=== PATIENT | female | born 1995 | race Caucasian/White ===

== ENCOUNTER 2023-09-29 07:50 | Outpatient (OUT) | payer BC, SELFPAY ==
--- NOTE | 2023-09-29 08:45 | CA_ITS ---
Patient Name: LETICIA THOMAS MR#: [id number] : 1995 Exam Date: 09/29/2023 Ordering Doctor: DR Mahendra Mustafa . ECHOCARDIOGRAM REPORT PROCEDURE: CA ECHO DOPPLER COMPLETE INDICATIONS: Tachycardia COMPARISON: None. DESCRIPTION: COMPLETE ECHOCARDIOGRAM Real-time transthoracic echocardiography with 2D, M-mode, spectral and color flow Doppler performed. QUALITY: Technical quality was good. LEFT VENTRICLE: Normal chamber size. Normal left ventricular wall thickness. LV EF: Global left ventricular systolic function is normal. Calculated left ventricular ejection fraction is 56%. No regional wall motion abnormalities. DIASTOLIC: Normal diastolic function. ATRIAL SEPTUM: Inadequately seen. LEFT ATRIUM: Normal chamber size. RIGHT ATRIUM: Normal chamber size. RIGHT VENTRICLE: Normal chamber size. Normal right ventricular systolic function. TRICUSPID VALVE: Normal mobility and thickness. No stenosis with trivial regurgitation. Unable to assess right ventricular systolic pressure due to lack of measurable tricuspid regurgitation. MITRAL VALVE: Normal mobility and thickness. No evidence of mitral valve stenosis. There is no mitral annular calcification. Trivial mitral regurgitation. AORTIC VALVE: Normal trileaflet appearance. No visible sclerosis. Normal leaflet mobility. No evidence of aortic valve stenosis. No aortic regurgitation. AORTIC ROOT: Normal diameter and appearance. PULMONIC VALVE: Normal thickness and mobility. No stenosis. Trivial regurgitation. PERICARDIUM: No evidence of pericardial effusion. IVC: Collapses with inspirations. Normal size. CONCLUSION: Essentially normal 2D echocardiogram with Doppler Adult Echocardiography Procedure Report Left Ventricle LVEDD (3.7 - 5.6 cm): 5.26 cm LVESD (2.2 - 4.0 cm): 3.40 cm LVIVS thickness (0.6 - 1.2 cm): 0.90 cm LVPW thickness (0.5 - 1.0 cm): 0.93 cm e': 0.16 m/s E - e': 6.33 LVOT Max Gradient: 4.40 mm[Hg] LVOT Area (cm2): 1.05 m/s Peak Velocity (LVOT): 1.05 m/s Mean Velocity (LVOT): 0.75 m/s LVOT Diameter 2.12 cm Left Ventricular Ejection Fraction: 55.62 % Left Atrium LA Volume Index (2D A2C): 24.80 ml/m2 Left Atrium Systolic Dimension: 3.17 cm Mitral Valve MV E to A Ratio: 1.80 Mitral Valve A-Wave Peak Velocity: 0.58 m/s Mitral Valve E-Wave Peak Velocity: 1.04 m/s Right Ventricle RV Internal Diastolic Dimension: 3.23 cm Aorta AO Root Diam: 3.05 cm Ascending Ao Diam: 2.86 cm Aortic Valve AoV Area (Peak Turner): 2.79 cm2, 2.79 cm2 AoV Area (VTI): 2.67 cm2, 2.67 cm2 Peak Velocity(Antegrade Flow): 1.33 m/s Peak Gradient(Antegrade Flow): 7.03 mm[Hg] Mean Velocity(Antegrade Flow): 0.94 m/s Mean Gradient(Antegrade Flow): 4.03 mm[Hg] Velocity Time Integral: 27.16 cm Tricuspid Valve Peak Velocity (Regurgitant Flow): 1.10 m/s, 1.90 m/s Pulmonic Valve Mean Gradient: 1.93 mm[Hg], 2.27 mm[Hg] Mean Velocity: 0.65 m/s, 0.70 m/s Peak Velocity: 0.97 m/s Peak Gradient: 3.25 mm[Hg], 4.25 mm[Hg] Right Atrium Right Atrium Systolic Pressure: 46.40 ml, 46.40 ml Dictated by: Nicolasa Amos M.D. on 09/29/2023 at 11:38 Approved by: Nicolasa Amos M.D. on 09/29/2023 at 11:41
[2023-09-29 09:00] LABS: Basophils Percent Auto 0.2 % (0.2-2.0); Eosinophils Absolute Auto 0.2 10^3/uL (0.0-0.7); Eosinophils Percent Auto 2.9 % (0.9-7.0); Hematocrit 41.3 % (36.0-48.0); Hemoglobin 13.6 g/dL (12.0-16.0); Immature Granulocytes Abs Auto 0.01 10^3/uL (0.00-0.03); Immature Granulocytes Pct Auto 0.2 % (0.0-0.5); Lymphocytes Absolute Auto 2.6 10^3/uL (1.2-3.8); Lymphocytes Percent Auto 42.3 % (20.5-60.0); Mean Corpuscular HGB Conc 32.9 g/dL (29.9-35.2); Mean Corpuscular Hemoglobin 30.1 pg (26.7-34.0); Mean Corpuscular Volume 91.4 fL (81.0-99.0); Mean Platelet Volume 9.5 fL (9.5-13.5); Monocytes Absolute Auto 0.5 10^3/uL (0.3-0.8); Monocytes Percent Auto 8.6 % (1.7-12.0); Neutrophils Absolute Auto 2.8 10^3/uL (1.4-6.5); Neutrophils Percent Auto 45.8 % (43.0-75.0); Platelet Count 274 10^3/uL (150-450); Red Blood Count 4.52 10^6/uL (4.20-5.40); Red Cell Distribution Width 12.4 % (11.0-15.0); White Blood Count 6.2 10^3/uL (4.0-11.0)
[2023-09-29 09:08] LABS: Erythrocyte Sedimentation Rate 11 mm/hr (<=20)
[2023-09-29 11:29] LABS: Alanine Aminotransferase 28 U/L (14-59); Albumin Level 3.6 g/dL (3.4-5.0); Alkaline Phosphatase 70 U/L (46-116); Anion Gap 15.3; Aspartate Amino Transferase 12 U/L (15-37); BUN Creatinine Ratio 9.2; Bilirubin Direct <0.1 mg/dL (0.0-0.2); Bilirubin Total 0.3 mg/dL (0.2-1.0); Calcium 8.4 mg/dL (8.5-10.1); Carbon Dioxide 25.2 mmol/L (21.0-32.0); Chloride 102 mmol/L (98-107); Estimated GFR (African America >60 (>=60); Estimated GFR (Non-African Ame >60 (>=60); Free T3 2.69 pg/mL (2.18-3.98); Globulin 3.6 g/dL; Glucose 80 mg/dL (74-106); Potassium 3.5 mmol/L (3.5-5.1); Sodium 139 mmol/L (136-145); Thyroid Stimulating Hormone 5.186 uIU/mL (0.358-3.740); Total Protein 7.2 g/dL (6.4-8.2)
== END 2023-09-29 07:51 | disposition home or self-care (01) ==
LOC: CARD 07:53
PROVIDERS: PCP Family Medicine; Visit Provider Family Medicine
DX: R00.0 Tachycardia, unspecified (principal); I11.0 Hypertensive heart disease with heart failure
CPT/HCPCS: 36415; 80048; 80076; 83880; 84436; 84443; 84481; 85025; 85652; 93306

== ENCOUNTER 2024-03-27 20:46 | Outpatient (REF) | payer BC, SELFPAY ==
--- OUTSIDE RECORDS SUMMARY | 2024-03-27 20:51 | XMS_ITS | CCD ---
Author Organization [facility] Care Team Providers Care High School Coach Name Role Phone ELLA CANAS Admitting Unavailable ELLA CANAS Attending Unavailable LOR ., DR JOHN Primary Care Unavailable ELLA CANAS Consulting Unavailable LOR ., DR JOHN Admitting Unavailable LOR ., DR JOHN Attending Unavailable HOY ., DR JOHN Primary Care Unavailable HOY ., DR JOHN Consulting Unavailable WEST, DR CHUCKIE Escalante Consulting Unavailable Problems Problem Classification Problem Date Documented Date Episodic/Chronic Immunizations and screening for infectious disease (1 source) Encounter for screening for human papillomavirus (HPV); Translations: [ENC SCREENING HUMAN PAPILLOMAVIRUS] Onset: 07-21-2022 Episodic Menstrual disorders (4 sources) Excessive and frequent menstruation with irregular cycle; Translations: [EXCESS AND FREQ MEN W/IRREG CYCLE] Onset: 10-08-2022 Chronic Other screening for suspected conditions (not mental disorders or infectious disease) (4 sources) Encounter for screening for malignant neoplasm of cervix; Translations: [ENC SCREENING MALIG NEOPLASM CERV] Onset: 07-14-2022 Episodic Ovarian cyst (1 source) Other ovarian cyst, left side; Translations: [OTHER OVARIAN CYST LEFT SIDE] Onset: 10-16-2022 Episodic Results Test Name Value Interpretation Reference Range Facil ity US PELVIS TRANSVAGon 023 US PELVIS TRANSVAG EXAMINATION: US PELVIS TRANSVAG HISTORY: Excessive menstruation with irregular cycle COMPARISON: No relevant comparison available. FINDINGS: The patient did not want to drink for transabdominal imaging. Transvaginal performed The uterus is normal in size, contour and echotexture, anteverted. Uterus measures 8.2 x 4.3 x 3.6 cm. No focal myometrial mass The endometrium measures 9 mm, normal. The right ovary is normal in appearance measuring 1.9 x 1.6 x 1.3 cm. Normal color and Doppler flow. The left ovary is normal in appearance measuring 2.9 x 2.4 x 1.9 cm. Area of anechoic echogenicity measuring 1.4 x 1.1 x 1.2 cm, simple cyst. Normal color and Doppler flow No free fluid IMPRESSION: 1.4 cm left ovarian simple cyst Electronically authenticated by: CHUCKIE BANSAL Date: 2022-10-09 11:42 Normal [facility] PAP ACOG PANEL 2: 21 to 29on 07-29-2022 . . Normal [facility] Comment on above: Result Comment: Perf ormed at: WB Performed By: #### [id number] #### [facility] [address] [place] [address] Dr. Nba Baker Age Gdln ACOG Testing [facility] Comment on above: Performed By: #### [id number] #### [facility] [address] [place] [address] Dr. Nba Baker DIAGNOSIS: Comment [facility] Comment on above: Result Comment: NEGA TIVE FOR INTRAEPITHELIAL LESION OR MALIGNANCY. THIS SPECIMEN WAS RESCREENED PART OF OUR [facility] PROGRAM. Performed at: WB Performed By: #### [id number] #### [facility] [address] [place] [address] Dr. Nba Baker Methodology: Comment [facility] Comment on above: Result Comment: This liquid based ThinPrep(R) pap test was screened with the use of an image guided system. Performed at: WB Performed By: #### [id number] #### [facility] [address] [place] [address] Dr. Nba Baker Note: Comment [facility] Comment on above: Result Comment: The Pap smear is a screening test designed to aid in the detection of premalignant and malignant conditions of the uterine cervix. It is not a diagnostic procedure and should not be used as the sole means of detecting cervical cancer. Both false-positive and false-negative reports do occur. . Performed at: WB Performed By: #### [id number] #### [facility] [address] [place] [address] Dr. Nba Baker Performed by: Comment Normal [facility] Comment on above: Result Comment: Jean-Paul Mercado, [employer] Forming Equipment Operator (ASCP) Performed at: [facility] Performed By: #### [id number] #### [facility] [address] [address] [address] Nba Baker QC reviewed by: Comment Normal [facility] Comment on above: Result Comment: Justin Jaeger, [employer] Forming Equipment Operator (ASCP) Performed at: WB Performed By: #### [id number] #### [facility] [address] [address] [address] Nba Baker Reflex Criteria: Comment Normal [facility] Comment on above: Result Comment: The HPV DNA reflex criteria were not met with this specimen result therefore, no HPV testing was performed. . Performed at: WB Performed By: #### [id number] #### [facility] [address] [address] [address] Nba Baker Specimen adequacy: Comment Normal [facility] Comment on above: Result Comment: Sati sfactory for evaluation. Endocervical and/or squamous metaplastic cells (endocervical component) are present. Performed at: WB Performed By: #### [id number] #### [facility] [address] [address] [address] Nba Baker Encounters Encounter Date Encounter Type Care Provider Facility Start: 12-30-2023 End: 12-30-2023 ambulatory Not Available Start: 10-07-2023 End: 10-07-2023 ambulatory Not Available Start: 07-21-2023 End: 07-21-2023 ambulatory Not Available Start: 10-08-2022 End: 10-09-[address] DORA HOROWITZ . Facility:[facility] Start: 07-14-2022 End: 07-14-2022 ambulatory ELLA CANAS Facility:[facility] Payers Date Payer Category Payer Unknown [id number] 2.16.84 [id number] 1995 Unknown [id number] 2.16.84 [id number] 1995 Unknown [id number] 2.16.84 [id number] 1995 Unknown [id number] 2.16.84 [id number] 1995 Unknown [id number] 1959 Unknown [id number] 1958 Unknown [id number] Summary Purpose Family History No Family History Records FoundNo Family History Records Found Advance Directives No Advanced Directives Records FoundNo Advanced Directives Records Found Additional Source Comments INFORMATION SOURCE (unrecogn ized section and content) DATE CREATED AUTHOR [facility]/2022 [facility] DATE CREATED AUTHOR MAYDA HERNANDEZ 12/31/2023 [facility] FOR RECORDS PERTAINING TO PATIENTS WHO ARE OR HAVE BEEN ENROLLED IN A CHEMICAL DEPENDENCY/SUBSTANCEABUSE PROGRAM, SOME INFORMATION MAY BE OMITTED. This clinical summary was aggregated from multiple sources. Caution should be exercised in using it in the provision of clinical care. This summary normalizes information from multiple sources, and as a consequence, information in this document may materially change the coding, format and clinical context of patient data. In addition, data may be omitted in some cases. CLINICAL DECISIONS SHOULD BE BASED ON THE PRIMARY CLINICAL RECORDS. [facility] [employer] provides no warranty or guarantee of the accuracy or completeness of information in this document.
== END 2024-03-27 20:47 | disposition home or self-care (01) ==
LOC: LAB 20:46
PROVIDERS: PCP Family Medicine; Visit Provider Physician Assistant
DX: Z01.419 Encounter for gynecological examination (general) (routine) without abnormal findings (principal)
CPT/HCPCS: 88175

== ENCOUNTER 2024-10-23 08:42 | Outpatient (OUT) | payer BC, SELFPAY ==
--- NOTE | 2024-10-23 08:46 | XR_ITS ---
The [address] [address] Patient Name: LETICIA THOMAS MRN: [id number] date: 1995 Sex: F Assigned Patient Location: [facility] Current Patient Location: [facility] Accession/Order Number: [id number] Exam Date: 10/23/2024 09:38 Report Date: 10/23/2024 09:43 At the request of: DORA HOROWITZ MD Procedure: XR foot LT 2V Clinical data: Left foot and ankle pain for the past 2 weeks, greatest at the arch. No injury. LEFT ANKLE - 2 views COMPARISON: 12/29/2014 AP and lateral views were obtained. There is no evidence of fracture or dislocation. The talar dome is intact. The soft tissues are still mildly prominent. XR/XR ankle LT 2V IMPRESSION: NO ACUTE BONY FINDINGS. LEFT FOOT - 3 views COMPARISON: AP and lateral views were obtained. There is no evidence of fracture or dislocation. There are no significant soft tissue abnormalities. IMPRESSION: NO ACUTE BONY FINDINGS. Impression dictated by: Lorene Angulo M.D.10/23/2024 9:43 AM Dictation Location: [place] [address] Electronically authenticated by: [id number] Y Date: 10/23/2024 09:43
--- NOTE | 2024-10-23 08:46 | XR_ITS ---
The [address] [address] Patient Name: LETICIA THOMAS MRN: [id number] date: 1995 Sex: F Assigned Patient Location: [facility] Current Patient Location: [facility] Accession/Order Number: [id number] Exam Date: 10/23/2024 09:38 Report Date: 10/23/2024 09:43 At the request of: DORA HOROWITZ MD Procedure: XR foot LT 2V Clinical data: Left foot and ankle pain for the past 2 weeks, greatest at the arch. No injury. LEFT ANKLE - 2 views COMPARISON: 12/29/2014 AP and lateral views were obtained. There is no evidence of fracture or dislocation. The talar dome is intact. The soft tissues are still mildly prominent. XR/XR foot LT 2V IMPRESSION: NO ACUTE BONY FINDINGS. LEFT FOOT - 3 views COMPARISON: AP and lateral views were obtained. There is no evidence of fracture or dislocation. There are no significant soft tissue abnormalities. IMPRESSION: NO ACUTE BONY FINDINGS. Impression dictated by: Lorene Angulo M.D.10/23/2024 9:43 AM Dictation Location: [place] [address] Electronically authenticated by: [id number] Y Date: 10/23/2024 09:43
--- OUTSIDE RECORDS SUMMARY | 2024-10-23 09:04 | XMS_ITS | CCD ---
Author Organization [facility] Care Team Providers Care Broom Bundler Name Role Phone ELLA CANAS Admitting Unavailable ELLA CANAS Attending Unavailable LOR ., DR JOHN Primary Care Unavailable ELLA CANAS Consulting Unavailable LOR ., DR JOHN Admitting Unavailable LOR ., DR JOHN Attending Unavailable LOR ., DR JOHN Primary Care Unavailable LOR ., DR JOHN Consulting Unavailable [place], DR CHUCKIE Escalante Consulting Unavailable MAXINE VELIZ Attending Unavailable Dora Mustafa MD Primary Care Provider [phone] Medications Current Medications Medication Drug Class(es) Dates Sig (Normalized) Sig (Original) 1 ml medroxyPROGESTERone acetate 150 mg/ml prefilled syringe (16 sources) Progestin Start: medroxyPROGESTERone (Depo-Provera) 150 MG/ML suspension prefilled syringe injection syringe Indications: control counseling INJECT 1 ML (150 MG) INTO THE SHOULDER, THIGH, OR BUTTOCKS EVERY 3 MONTHS 1 mL 3 03/27/2024 Active Start: 02-01-2023 medroxyPROGEST ERone (Depo-Provera) 150 MG/ML suspension prefilled syringe injection syringe Indications: control counseling INJECT 1 ML (150 MG) INTO THE SHOULDER, THIGH, OR BUTTOCKS EVERY 3 MONTHS 1 mL 3 03/27/2024 Active Start: 01-03-2023 medroxyPROGEST ERone (Depo-Provera) injection 150 mg Start: 10-04-2022 Depo-SubQ Prov era 104 104 MG/0.65ML injection USE 1 INJECTION INTRAMUSCULARLY EVERY 12 WEEKS 10/04/2022 Active Problems Problem Classification Problem Date Documented Date Episodic/Chronic Immunizations and screening for infectious disease (1 source) Encounter for screening for human papillomavirus (HPV); Translations: [ENC SCREENING HUMAN PAPILLOMAVIRUS] Onset: 07-21-2022 Episodic Menstrual disorders (8 sources) Excessive and frequent menstruation with irregular cycle; Translations: [Disorder of menstruation] Onset: 10-08-2022 Chronic Other screening for suspected conditions (not mental disorders or infectious disease) (4 sources) Encounter for screening for malignant neoplasm of cervix; Translations: [ENC SCREENING MALIG NEOPLASM CERV] Onset: 07-14-2022 Episodic Ovarian cyst (1 source) Other ovarian cyst, left side; Translations: [OTHER OVARIAN CYST LEFT SIDE] Onset: 10-16-2022 Episodic Results Test Name Value Interpretation Reference Range Facil ity IGP,APTIMA HPV,AGE GDLNon AGE GDLN ACOG TESTING Note . [facility] Comment on above: TESTS RESULT FLAG UN ITS REF RANGE LAB Clinician Provided Cytology Information Source.............Cervix;Endocervix No. of containers..01 ThinPrep Vial Age Algo ACOG Shayy... - 01 FLAG LEGEND: L-Low Normal,H-High Normal,LL-Alert Low,HH-Alert High <-Panic Low,>-Panic High,A-Abnormal,AA-Critical Abnormal Performed at: 01 =G [facility] [place] [address] Gwendolyn Puente MD, IGP, RFX APTIMA HPV ASCU Note . [facility] Comment on above: TESTS RESULT FLAG UN ITS REF RANGE LAB DIAGNOSIS: 02 NEGATIVE FOR INTRAEPITHELIAL LESION OR MALIGNANCY. Specimen adequacy: 02 Satisfactory for evaluation. Endocervical and/or squamous metaplastic cells (endocervical component) are present. Performed by: Lisette Gutierrez, [employer] Officer ([facility]) . 02 Note: Note 02 The Pap smear is a screening test designed to aid in the detection of premalignant and malignant conditions of the uterine cervix. It is not a diagnostic procedure and should not be used as the sole means of detecting cervical cancer. Both false-positive and false-negative reports do occur. Test Methodology: Note 02 This liquid based ThinPrep(R) pap test was screened with the use of an image guided system. . 02 The HPV DNA reflex criteria were not met with this specimen result therefore, no HPV testing was performed. FLAG LEGEND: L-Low Normal,H-High Normal,LL-Alert Low,HH-Alert High <-Panic Low,>-Panic High,A-Abnormal,AA-Critical Abnormal Performed at: [address] [facility] [address] [place] [address] Gwendolyn Puente MD, Performed at: =G - [facility] [address], [place] [id number] Search Engine Optimization Consultant: Gwendolyn Puente MD, Phone: [phone] Performed at: - [facility] [id number] Search Engine Optimization Consultant: Gwendolyn Puente MD, Phone: [phone] BRUSH-SPATULA CERVIX ENDOCERVIX [facility] US PELVIS TRANSVAGon 023 US PELVIS TRANSVAG [...] by: CHUCKIE BANSAL Date: 2022-10-09 11:42 Normal [facility] PAP ACOG PANEL 2: 21 to 29on 07-29-2022 . . Normal [facility] Comment on above: Result Comment: Perf ormed at: WB Performed By: #### [id number] #### [facility] [address] [place] [address] Dr. Nba Baker Age Gdln ACOG Testing 22- Normal [facility] Comment on above: Performed By: #### [id number] #### [facility] [address] [place] [address] Dr. Nba Baker DIAGNOSIS: Comment Normal [facility] Comment on above: Result Comment: NEGA TIVE FOR INTRAEPITHELIAL LESION OR MALIGNANCY. THIS SPECIMEN WAS RESCREENED PART OF OUR ELECTRICAL MAINTENANCE SUPERVISOR PROGRAM. Performed at: WB Performed By: #### [id number] #### [facility] [address] [place] [address] Dr. Nba Baker Methodology: Comment Normal [facility] Comment on above: Result Comment: This liquid based ThinPrep(R) pap test was screened with the use of an image guided system. Performed at: WB Performed By: #### [id number] #### [facility] [address] [place] [address] Dr. Nba Baker Note: Comment [facility] Comment on above: Result Comment: The Pap smear is a screening test designed to aid in the detection of premalignant and malignant conditions of the uterine cervix. It is not a diagnostic procedure and should not be used as the sole means of detecting cervical cancer. Both false-positive and false-negative reports do occur. . Performed at: WB Performed By: #### [id number] #### [facility] [address] [place] [address] Dr. Nba Baker Performed by: Comment Normal [facility] Comment on above: Result Comment: Jean-Paul Mercado, [employer] Officer ([employer]) Performed at: [facility] Performed By: #### [id number] #### [facility] [address] [place] [address] Dr. Nba Baker QC reviewed by: Comment Normal [facility] Comment on above: Result Comment: Justin Jaeger, [employer] Officer (ASCP) Performed at: WB Performed By: #### [id number] #### [facility] [address] [place] [address] Dr. Nba Baker Reflex Criteria: Comment [facility] Comment on above: Result Comment: The HPV DNA reflex criteria were not met with this specimen result therefore, no HPV testing was performed. . Performed at: WB Performed By: #### [id number] #### [facility] [address] [place] [address] Dr. Nba Baker Specimen adequacy: Comment Normal [facility] Comment on above: Result Comment: Sati sfactory for evaluation. Endocervical and/or squamous metaplastic cells (endocervical component) are present. Performed at: WB Performed By: #### [id number] #### [facility] [address] [place] [address] Dr. Nba Baker Vital Signs Date Time Vital Sign Value Performing Clinician Antonio cedeno 03-27-2024 11:21-0400 Body height 165.1 cm Maxine SULLIVAN Work Phone: [facility] 03-27-2024 11:21-0400 Body mass index (BMI) [Ratio] 44.43 kg/m2 Maxine Veliz PA Work Phone: [facility] 03-27-2024 11:21-0400 Body weight 121.11 kg Maxine Veliz PA Work Phone: [facility] 03-27-2024 11:21-0400 Diastolic blood pressure 80 mm[Hg] Maxine Veliz PA Work Phone: [facility] 03-27-2024 11:21-0400 Systolic blood pressure 120 mm[Hg] Maxine Veliz PA Work Phone: [facility] Encounters Encounter Date Encounter Type Care Provider Facility Start: 03-30-2024 End: 03-30-2024 ambulatory MAXINE VELIZ Not Available Start: 03-27-2024 End: 03-27-2024 Bamboo flowsheet Maxine SULLIVAN Work Phone: [facility] Start: 03-27-2024 End: 03-30-2024 Bamboo flowsheet Maxine Veliz PA Work Phone: [facility] Start: 03-27-2024 End: 03-30-2024 Clinisync Result Encounter Maxine SULLIVAN Work Phone: [facility] External Department Unsolicited Start: 03-27-2024 End: 03-27-2024 Patient encounter procedure Maxine SULLIVAN Work Phone: [facility] Healthcare Start: 03-27-2024 End: 03-27-2024 Periodic preventive med est patient 18-39 yrs Maxine SULLIVAN Work Phone: [facility] Comment on above: Well woman exam with routine gynecological exam Start: 03-27-2024 End: 03-27-2024 ambulatory MAXINE VELIZ Not Available Start: 12-30-2023 End: 12-30-2023 ambulatory MAXINE KEREN Not Available Start: 10-07-2023 End: 10-07-2023 ambulatory MAXINE KEREN Not Available Start: 07-21-2023 End: 07-21-2023 ambulatory MAXINE KEREN Not Available Start: 10-08-2022 End: 10-09-[address] DORA MUSTAFA . Facility: Start: 07-14-2022 End: 07-14-2022 ambulatory ELLA CANAS Facility:H1 Procedures Date Procedure Procedure Detail Performing Clinician Start: 03-27-2024 IGP,APTIMA HPV,AGE GDLN Maxine Veliz PA Work Phone: Plan of Treatment Date Care Activity Detail Author Start: 06-29-2024 End: 06-29-2024 Clinical Support 06/29/2024 9:10 AM EST Clinical Support [facility] [address] [facility] [place] [address] [facility] Start: 03-30-2024 End: 03-30-2024 Clinical Support 03/30/2024 9:00 AM EDT Clinical Support [facility] [address] [facility] [place] [address] [facility] Start: 03-27-2024 End: 03-27-2024 Patient encounter procedure 03/27/2024 11:00 AM EDT Office Visit [facility] [address] [place] [address] Maxine Veliz PA [address] [place] [address] Arrived [facility] Comment on above: Arrived Cytology Cervical or vaginal smear or scraping study Pap Smear Pathology and Cytology Routine Well woman exam with routine gynecological exam Ordered: 03/27/2024 [facility] Work Phone: Comment on above: Ordered: 03/27/2024 Payers Date Payer Category Payer Unknown BCBS BCBS xxxxxx [id number] 2022-Present [phone] [address] [place] [address] [id number] 1996 Unknown [id number] 1996 Unknown [id number] 1996 Unknown [id number] 1996 Unknown [id number] 1996 Unknown [id number] 1996 Unknown [id number] 1996 Unknown [id number] 1959 Unknown [id number] 1959 Unknown [id number] Social History Date Type Detail Facility Start: 03-27-2024 [facility] History of tobacco use Current smoker [facility] History of tobacco use Cigarette Smoker [facility] Start: 12-30-2023 End: 03-27-2024 Alcoholic beverage intake Lifetime non-drinker (finding) [facility] Start: 02-02-2023 End: 03-27-2024 [facility] of Social function [facility] Start: 02-02-2023 End: 03-27-2024 Tobacco use panel [facility] Start: 12-29-2022 Alcohol Comment caffeine intak e: 1-2 cups per day; soda [facility] Start: 1995 Sex assigned at Not on file [facility] Start: 12-29-2022 [facility] Smokes tobacco daily [facility] History of Present illness Narrative 03-27-2024 NATE Rodriguez - 03/27/2024 11:00 AM EDT Note Date & Type Note Facility 03-27-2024 History of Presen t illness Narrative Reason for Appointment: Patient ID: Lillian Zapata is a 28 y.o. female who presents for Well Women Visit Patient presents today for Annual Exam. MEDICATIONS Current Outpatient Medications Medication Instructions Depo-SubQ Provera 104 104 MG/0.65ML injection USE 1 INJECTION INTRAMUSCULARLY EVERY 12 WEEKS medroxyPROGESTERone (Depo-Provera) 150 MG/ML suspension prefilled syringe injection syringe INJECT 1 ML (150 MG) INTO THE SHOULDER, THIGH, OR BUTTOCKS EVERY 3 MONTHS ALLERGIES No Known Allergies PROBLEMS Active Ambulatory Problems Diagnosis Date Noted Menstrual disorder 02/01/2023 Resolved Ambulatory Problems Diagnosis Date Noted No Resolved Ambulatory Problems Past Medical History: Diagnosis Date Depot contraception Ovarian cyst HISTORY PAST MEDICAL HISTORY SOCIAL HISTORY Past Medical History: Diagnosis Date Depot contraception Ovarian cyst Social History Tobacco Use Smoking status: Former Types: Cigarettes Smokeless tobacco: Not on file Substance Use Topics Alcohol use: Never Comment: caffeine intake: 1-2 cups per day; soda Drug use: Never FAMILY HISTORY No family history on file. SURGICAL HISTORY Past Surgical History: Procedure Laterality Date APPENDECTOMY SECTION, CLASSIC x2 SECTION, LOW TRANSVERSE OTHER SURGICAL HISTORY R shoulder scope DAP CO LAP,APPENDECTOMY 2016 REVIEW OF SYSTEMS Review of Systems: Review of Systems Constitutional: Negative. HENT: Negative. Eyes: Negative. Respiratory: Negative. Cardiovascular: Negative. Gastrointestinal: Negative. Genitourinary: Negative. Musculoskeletal: Negative. Skin: Negative. Neurological: Negative. All other systems reviewed and are negative. Hematological: Negative. Endocrine: Negative. Allergic/Immunologic: Negative. OBJECTIVE Objective: Physical Exam Constitutional: Appearance: Normal appearance. Genitourinary: Right Adnexa: not tender and no mass present. Left Adnexa: not tender and no mass present. No cervical discharge. Breasts: Breasts are soft. Right: Normal. Left: Normal. HENT: Head: Normocephalic. Nose: Nose normal. Mouth/Throat: Mouth: Mucous membranes are moist. Cardiovascular: Rate and Rhythm: Normal rate. Pulmonary: Effort: Pulmonary effort is normal. Abdominal: General: Bowel sounds are normal. Palpations: Abdomen is soft. Musculoskeletal: General: Normal range of motion. Cervical back: Normal range of motion. Neurological: General: No focal deficit present. Mental Status: She is alert. Skin: General: Skin is warm and dry. Psychiatric: Mood and Affect: Mood normal. Vitals and nursing note reviewed. Exam conducted with a production line solderer present. Vitals: Estimated body mass index is 44.43 kg/m as calculated from the following: Height as of this encounter: 5' 5 . Weight as of this encounter: 267 lb. BP: 120/80 Patient's last menstrual period was 07/25/2023. ASSESSMENT & PLAN ICD-10-CM 1. Well woman exam with routine gynecological exam Z01.419 Pap Smear Annual Exam: Patient presents today for an annual exam. Patient states she is doing well and has no complaints. Pap was obtained without difficulty. No orders of the defined types were placed in this encounter. Follow Up: Patient is to return in one year for annual unless needed otherwise. Documented by NATE Rodriguez on behalf of: NATE Rodriguez documented in this encounter [facility] Evaluation note Note Date & Type Note Facility Evaluation note Diagnosis Well woman exam with routine gynecological exam Routine gynecological examination documented in this encounter [facility] Summary Purpose Family History No Family History Records FoundNo Family History Records Found Advance Directives No Advanced Directives Records FoundNo Advanced Directives Records Found Additional Source Comments INFORMATION SOURCE (unrecogn ized section and content) DATE CREATED AUTHOR 10/17/2022 [facility] DATE CREATED AUTHOR AUTHOR'S ORGANIZ ATION 04/01/2024 [facility] EPIC Reason for Visit (unrecogniz ed section and content) Reason Comments Well Women Visit Care Teams (unrecognized sec tion and content) Broom Bundler Relationship Specialty Start Date End Date Dora Mustafa MD [address] [place] [address] PCP - General Family Medicine 02/02/23 Broom Bundler Relationship Specialty Start Date End Date Dora Mustafa MD [address] [place] [address] PCP - General Family Medicine 02/02/23 Broom Bundler Relationship Specialty Start Date End Date Dora Mustafa MD [address] [place] [address] PCP - General Family Medicine 02/02/23 FOR RECORDS PERTAINING TO PATIENTS WHO ARE [...] BE BASED ON THE PRIMARY CLINICAL RECORDS. [facility] [employer] [facility]. provides no warranty or guarantee of the accuracy or completeness of information in this document.
== END 2024-10-23 08:43 | disposition home or self-care (01) ==
LOC: RAD 08:43
PROVIDERS: PCP Family Medicine; Visit Provider Family Medicine
DX: M79.672 Pain in left foot (principal)
CPT/HCPCS: 73600; 73620

== ENCOUNTER 2025-04-03 08:48 | Outpatient (OUT) | payer BC, SELFPAY ==
--- OUTSIDE RECORDS SUMMARY | 2023-10-03 12:00 | XMS_ITS ---
Author Organization [facility] in [place] Address [address] [place] [address] Care Team Providers Care Pneumatic Tester Name Role Phone Lisa Mustafa Primary Care Provider DORA MUSTAFA Unavailable [phone] REASON FOR VISIT flu like symptoms-no covid test Encounters Encounter Location Date Provider Diagnosis [address] [address] 10/03/2023 DORA MUSTAFA Plan Of Treatment No Information Progress Notes * Lillian ZAPATA KDOB:[birth year] (29 yo F)Acc No.[id number]:10/03/2023 UNLOCKED PROGRESS NOTE Progress Note Patient: Iban SAINZmansoor Nikki Provider: Hernan Mustafa M.D. :1995 A ge:28 Y S ex:Female Date:10/03/2023 Address:[address] [place] [id number] Pcp:Lisa Mustafa Subjective: * Chief Complaints: * 1 . Flu like symptoms-no covid test. * Medical History: Objective: * Vitals: Assessment: Plan: * Treatment: * * Electronic signature of LISA MUSTAFA MD on 04/03/2025 at 08:54 AM EDT Sign off status: Pending Visit Status: C ANC (Cancelled) * Provider: Hernan Mustafa M.D. Date: 0 10/03/2023 Generated for Armin carbajal/Alexandrea/Renukaitting on: 0 04/03/2025 08:54 AM EDT
--- OUTSIDE RECORDS SUMMARY | 2023-10-04 11:00 | XMS_ITS ---
Author Organization [facility] in [place] Address [address] [place] [address] Care Team Providers Care Supervisor [employer] Name Role Phone José Miguel Mustafa Primary Care Provider KENRICK HOOD Unavailable [phone] Allergies No Known Allergies REASON FOR VISIT vomiting/diarrhea. Taking meds Dr. Mustafa called in yesterday and is helping tremendously Social History Tobacco Use: Social History Observation Description Date Details (start date - stop date) Former Smoker 07/25/2015 - 07/25/2019 Tobacco Use/Smoking Question Answer Notes Patient is a former smoker When did you start smoking? 07/25/2015 When did you stop smoking? 07/25/2019 Alcohol Screen (Audit-C) Question Answer Notes Did you have a drink containing alcohol in the p ast year? No Points 0 Interpretation Negative Vital Signs Weight 271.8 lbs 10/04/2023 Height 65 in 10/04/2023 Blood pressure systolic 120 mm Hg 10/04/19 24 Blood pressure diastolic 82 mm Hg 024 Temperature 97.6 degrees Fahrenheit 10/04/19 24 BMI 45.22 kg/m2 10/04/2023 Encounters Encounter Location Date Provider Diagnosis [facility] [address] [facility] [place] [address] 10/04/2023 KENRICK HOOD Gastroenteritis K52. 9 Assessments Encounter Date Diagnosis (ICD Code) Assessment Notes Treatment Notes Treatment Clinical Notes Section Notes 10/04/2023 Gastroenteritis (ICD-10 - K52.9) push fluids, electrolytes continue prn zofran, levsin ok for work note Plan Of Treatment Treatment Notes Assessment Notes Gastroenteritis push fluids, electrolytes continue prn zofran, levsin ok for work note Next Appt Details Follow Up: prn, Reason: Progress Notes * Lillian ZAPATA KDOB:[birth year] (28 yo F)Acc No.[id number]:10/04/2023 Progress Note Patient: Lillian Hollingsworth Provider: Dennise Hood, KERWIN :1995 A ge:28 Y S ex:Female Date:10/04/2023 Address:[address] [place], [place] [id number] Pcp:Mahendra Mustafa Check In:02:47 PM ESTCheck O ut:03:07 PM EST Subjective: * Chief Complaints: * v omiting/diarrhea. Taking meds Dr. Mustafa called in yesterday and is helping tremendously * HPI: G eneral: belly ache Tuesday y vomiting, diarrhea s till some diarrhea, nausea med helping and levsin helping some S unday body aches n o fever, no cold sx. * ROS: G eneral/Constitutional: Fever d enies. H eadache d enies. W eight loss?denies. O phthalmologic: Discharge d enies. E ye Pain d enies. I tching and redness d enies. E NT: Nasal discharge d enies. N murphy congestion d enies.?Sore throat d enies. C ardiovascular: Chest tightness/ heavy pressure d enies. R apid heart rate d enies. S welling of extremities d enies. C hest pain d enies. ? R espiratory: Productive cough d enies. C hest pain d enies. C ough d enies. S hortness of breath d enies. W heezing d enies. ? G astrointestinal: Abdominal pain d enies. C onstipation d enies. D ecreased appetite d enies. D iarrhea a dmits. N ausea a dmits. V omiting a dmits. G enitourinary: Urinary incontinence d enies. P ainful urination d enies. M usculoskeletal: Back pain d enies. N woody pain d enies. M uscle aches d enies. S kin: Rash d enies. S kin lesion(s) d enies. ? * Active Problem List N92.1 Excessive, frequent and irregular menstruation Modified On:10/10/2022W/U Status:confirmed J02.0 Strep pharyngitis Modified On:02/09/2023W/U Status:confirmed * Medical History: * Surgical History: c ystoscopy 2015right shoulder arthroscopy section appendectomy * Hospitalization/Major Diagno stic Procedure: k domonique stone 2015 * Family History: F ather: unknown. M other: alive 47 yrs. B rother(s): alive. S on(s): alive. 1 brother(s) - healthy. 2 son(s) - healthy. . * Social History: T obacco Use: T obacco Use/Smoking P atient is a f ormer smoker W hen did you start smoking? 0 07/25/2015 W hen did you stop smoking? 0 07/25/2019 D rugs/Alcohol: A lcohol Screen (Audit-C) D id you have a drink containing alcohol in the past year? N o P oints 0 I nterpretation N egative * Medications: N one * Allergies: N .K.D.A.no[Allergies Verified] Objective: * Vitals: W t:271.8 lbs, Ht: 65 in, BP:120/82 mm Hg, Temp:97.6 F, BMI:45.22 Index, Wt-k.29 kg. * Examination: G eneral Examinations: GENERAL APPEARANCE: a lert and oriented, i n no acute distress. EYES: c onjunctiva normal, sclera non-icteric. NOSE: n ormal external appearance. LUNGS: c lear to auscultation bilaterally. CARDIO: r egular rate and rhythm, S1, S2 normal. ABDOMEN: s oft, nontender. MUSCULOSKELETAL G ait and station normal. SKIN: w arm and dry. Assessment: * Assessment: 1. G astroenteritis - K52.9 (Primary) Plan: * Treatment: * Procedure Codes: * Preventive Medicine: Screenings/Counseling: B VA ACTION PLAN Above Normal BMI Follow-up D ietary management education, guidance, and counseling See treatment section of progress note for complete details of management plan. * Follow Up: p rn * * Sign off status: Completed Visit Status: C HK (Check Out) true * Provider: Dennise Hood, NUCLEAR POWERPLANT MECHANIC Date: 0 10/04/2023 Generated for Armin carbajal/Alexandrea/eTransmitting on: 04/03/2025 08:55 AM EDT History and Physical Notes * HPI (History of Present Illness) Category Sub-Category Detail Notes Category Not es General belly ache Tuesday yesterday vomiting, diarrhea still some diarrhea, nausea med helping and levsin helping some Tuesday body aches no fever, no cold sx Examination Category Sub-Category Detail Notes Category Not es General Examinations GENERAL APPEARANCE: alert a nd oriented, in no acute distress EYES: conjunctiva normal, sclera non-icteric EARS: NOSE: normal external appe arance THROAT: CARDIO: regular rate and rhy thm, S1, S2 normal LUNGS: clear to auscultatio n bilaterally ABDOMEN: soft, nontender SKIN: warm and dry BACK: MUSCULOSKELETAL: Gait and station nor mal LYMPH NODES:
--- OUTSIDE RECORDS SUMMARY | 2024-10-11 07:00 | XMS_ITS ---
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 07/25/2015 When did you stop smoking? 07/25/2019 Problems Problem Type SNOMED Code ICD Code Onset Dates Problem Status W/U Status Risk Notes Problem Plantar fasciitis (614434275) Plantar fasciitis (M72.2) Active confirmed Vital Signs Weight 272.2 lbs 10/11/2024 Height 65 in 10/11/2024 Blood pressure systolic 140 mm Hg 10/12/19 25 Blood pressure diastolic 96 mm Hg 025 BMI 45.29 kg/m2 10/11/2024 Encounters Encounter Location Date Provider Diagnosis [facility] [address] [place] [address] 10/11/2024 José Miguel Mustafa Plantar fasciitis M72.2 Assessments Encounter Date Diagnosis (ICD Code) Assessment Notes Treatment Notes Treatment Clinical Notes Section Notes 10/11/2024 Plantar fasciitis (ICD-10 - M72.2) Plan Of Treatment Medication Medication Name Sig Start Date Stop Date Notes Meloxicam 15 MG 1 tablet Orally Once a day for 30 days Progress Notes * Lillian ZAPATA KDOB:[birth year] (29 yo F)Acc No.[id number]:10/11/2024 Progress Note Patient: Lillian SAINZ Provider: Hernan Mustafa ([facility])MD :1995 A ge:29 Y S ex:Female Date:10/11/2024 Address:[address] [place], [place] [id number] Check In:10:49 AM ESTCheck O ut:11:18 AM EST Subjective: * Chief Complaints: * L eft foot pain- waking up when sleeping throbbing pain- no injury * HPI: D epression Screening: PHQ-2 (2015 Edition) L ittle interest or pleasure in doing things??Not at all F eeling down, depressed, or hopeless? N ot at all T otal Score 0 left foot pain - burting pain - can hapen at rest - not worse with activyt. * ROS: E ENT: hearing changes d enies. v isual changes d enies.?non-healing mouth sores d enies. s wollen glands or neck lumps d enies. h oarseness d enies. s ore throat d enies. d ifficulty swallowing d enies. n ose bleeds d enies. n murphy congestion d enies. e ar ache d enies. e ar discharge?denies. r inging in ears d enies. l ight sensitivity d enies. e ye pain d enies. b lurring d enies. e ye irritation d enies. d ouble vision d enies.?vision loss d enies. G eneral/Constitutional: Sweats: D enies. F atigue d enies. S leep problems d enies. A norexia d enies. M alaise d enies. W eight loss d enies.?Fatigue or Weakness d enies. F ever or Chills d enies. C ardiovascular: Shortness of Breath w/lying flat d enies. L ightheadedness/dizziness d enies. C hest tightness/ heavy pressure d enies. S welling of legs, ankles, or feet d enies. W aking up with shortness of breath d enies. C hest pain denies. P alpitations d enies. W eight gain d enies. R espiratory: Chronic or frequent cough d enies. C oughing up blood?denies. D ifficulty breathing d enies. P roductive cough d enies. S noring?denies. S hortness of breath that awakens from sleep (PND) d enies. C hest pain d enies. S putum production d enies. W heezing d enies. M usculoskeletal: Joint pain d enies. J oint Fluid d enies. B ack pain d enies. K nee pain d enies. N woody pain d enies. J oint Stiffness d enies. M uscle cramps d enies. W eakness of muscles d enies. A rthritis d enies. M uscle aches d enies. P ain in shoulder(s) d enies. S wollen joints d enies. * Active Problem List N92.1 Excessive, frequent and irregular menstruation Modified On:10/10/2022W/U Status:confirmed J02.0 Strep pharyngitis Modified On:02/09/2023W/U Status:confirmed M72.2 Plantar fasciitis Modified On:10/11/2024W/U Status:confirmed * Medical History: * Surgical History: c ystoscopy 2015right shoulder arthroscopy 2002c section appendectomy * Hospitalization/Major Diagno stic Procedure: cheryle bai 2015 * Family History: F ather: unknown. M other: alive 48 yrs. B rother(s): alive. S on(s): alive. 1 brother(s) - healthy. 2 son(s) - healthy. . * Social History: T obacco Use: T obacco Use/Smoking P atient is a f ormer smoker W hen did you start smoking? 0 07/25/2015 W hen did you stop smoking? 0 07/25/2019 * Medications: N one * Allergies: N .K.D.A.no[Allergies Verified] Objective: * Vitals: W t:272.2lbs, Ht: 65 in, BP:140/96mm Hg, BMI:45.29Index, Wt-k.47 kg. * Examination: P hysical Exam: GENERAL: w ell developed, well nourished, in no acute distress. HEAD: n ormocephalic/atraumatic. EYES: p upils equal, round and reactive to light, conjunctivae and sclerae normal. EARS: n o deformity or lesion of external ear, canals and TM appear normal bilaterally, TM's intact, not inflamed with normal light reflex, hearing grossly normal to conversational speech. NOSE: n o deformity, discharge, inflammation, or lesions.? MOUTH: m ucous membranes moist, normal oropharynx and posterior pharynx without lesions or exudates, tongue normal, dentition normal. NECK: n woody supple, no masses or palpable cervical nodes, trachea midline, thyroid without nodules, masses, tenderness, or enlargement. CHEST: n o chest wall deformity, no chest wall tenderness.? LUNGS: n ormal respiratory effort and clear to auscultation, no wheezes, rales, or rhonchi, good air exchange. CARDIO: r egular rate and rhythm, normal S1 and S2, nor murmur, rub, or gallop. PULSES: n ormal capillary refill. ABDOMEN: s oft, non-distended, non-tender, no masses. MUSCULOSKELETAL: n o deformity or scoliosis noted, normal range of motion, joints normal, no erythema, edema, effusion, or ecchymosis. EXTREMITY: n o clubbing, cyanosis, edema, or deformity with normal ROM in both upper and lower bilateral extremities. NEUROLOGIC: g rossly normal. SKIN: n o rashes, ulcerations, or suspicious lesions. LYMPH NODES: n o cervical adenopathy, nodes normal. MENTAL STATUS: a lert and oriented x3, normal mood and affect. Assessment: * Assessment: 1. P lantar fasciitis - M72.2 (Primary) Plan: * Treatment: * Procedure Codes: * Preventive Medicine: Screenings/Counseling: B [place] ACTION PLAN Above Normal BMI Follow-up D ietary management education, guidance, and counseling * * Sign off status: Completed Visit Status: C HK (Check Out) true * Provider: Hernan Mustafa ([facility])MD Date: 0 10/11/2024 Generated for Printi ng/Faxing/eTransmitting on: 0 04/03/2025 08:54 AM EDT History and Physical Notes * HPI (History of Present Illness) Category Sub-Category Detail Notes Category Not es Depression Screening PHQ-2 (2015 Edition) Little interest or pleasure in doing things?: Not at all left foot pain - burting pain - can hapen at rest - not worse with activyt Feeling down, depressed, or hopeless?: N ot at all Total Score: 0 Examination Category Sub-Category Detail Notes Category Not es Physical Exam GENERAL: well developed, well nourished, in no acute distress HEAD: normocephalic/atraum atic EYES: pupils equal, round and reactive to light, conjunctivae and sclerae normal EARS: no deformity or lesi on of external ear, canals and TM appear normal bilaterally, TM's intact, not inflamed with normal light reflex, hearing grossly normal to conversational speech NOSE: no deformity, discha rge, inflammation, or lesions MOUTH: mucous membranes vibha st, normal oropharynx and posterior pharynx without lesions or exudates, tongue normal, dentition normal NECK: neck supple, no mass es or palpable cervical nodes, trachea midline, thyroid without nodules, masses, tenderness, or enlargement CHEST: no chest wall deform ity, no chest wall tenderness LUNGS: normal respiratory e ffort and clear to auscultation, no wheezes, rales, or rhonchi, good air exchange CARDIO: regular rate and rhy thm, normal S1 and S2, nor murmur, rub, or gallop PULSES: normal capillary ref ill ABDOMEN: soft, non-distended, non-tender, no masses RECTAL: MUSCULOSKELETAL: no deformity or scol iosis noted, normal range of motion, joints normal, no erythema, edema, effusion, or ecchymosis EXTREMITY: no clubbing, cyanosi s, edema, or deformity with normal ROM in both upper and lower bilateral extremities NEUROLOGIC: grossly normal SKIN: no rashes, ulceratio ns, or suspicious lesions LYMPH NODES: no cervical adenopat hy, nodes normal MENTAL STATUS: alert and oriented x 3, normal mood and affect
--- OUTSIDE RECORDS SUMMARY | 2024-10-22 04:11 | XMS_ITS ---
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 Role Phone José Miguel Mustafa Primary Care Provider REASON FOR VISIT Update- Left Foot Medications Medication SIG (Take, Route, Frequency, Duration) Notes Start Date End Date Status Daypro 600 MG Take 2 tablets Orall y once daily for 10 days 10/22/2024 Active Encounters Encounter Location Date Provider Diagnosis [address] [address] 10/22/2024 José Miguel Mustafa Plantar fasciitis M72.2 and Left foot pain M79.672 Assessments Encounter Date Diagnosis (ICD Code) Assessment Notes Treatment Notes Treatment Clinical Notes Section Notes 10/22/2024 Plantar fasciitis (ICD-10 - M72.2) 10/22/2024 Left foot pain (ICD-10 - M79.672) Plan Of Treatment Medication Medication Name Sig Start Date Stop Date Notes Daypro 600 MG Take 2 tablets Orall y once daily for 10 days 10/22/2024 Meloxicam 15 MG 1 tablet Orally Once a day 10/11/2024 Pending Test Test Name Order Date XR Ankle 2 Views Left 10/22/2024 XR FOOT 1-2 VIEWS LEFT 10/22/2024 Progress Notes * Lillian ZAPATA KDOB:[birth year] (29 yo F)Acc No.[id number]:10/22/2024 Patient: Lillian SAINZ :1995 A ge:29 Y S ex:Female Address:[address] [place] [id number] * Refills Stop Meloxicam Tablet, 15 MG, Orally, 1 tablet, Once a day Start Daypro Tablet, 600 MG, Orally, 20 Tablet, Take 2 tablets, once daily, 10 days, Refills=0 Subjective: * Chief Complaints: * U pdate- Left Foot * Medical History: * Surgical History: * Hospitalization/Major Diagno stic Procedure: * Medications: Objective: * Vitals: * Physical Examination: Assessment: * Assessment: 1. P lantar fasciitis - M72.2 2 . L eft foot pain - M79.672 ? Plan: * Treatment: 2. L eft foot pain I maging: XR Ankle 2 Views Left I maging: XR FOOT 1-2 VIEWS LEFT 3. O thers Start Daypro Tablet, 600 MG, Take 2 tablets, Orally, once daily, 10 days, 20 Tablet, Refills 0.? * Procedure Codes: * true * Date: Generated for Armin carbajal/Alexandrea/Blazesmitting on: 0 04/03/2025 08:54 AM EDT
--- OUTSIDE RECORDS SUMMARY | 2024-10-23 12:16 | XMS_ITS ---
Author Organization [facility] [place] Address [address] [place] [address] Care Team Providers Care Electric Pile Driver Operator Name Role Phone José Miguel Mustafa Primary Care Provider REASON FOR VISIT Xray results Encounters Encounter Location Date Provider Diagnosis [facility] [address] [place] [address] 10/23/2024 José Miguel Mustafa Plan Of Treatment No Information Progress Notes * Lillian ZAPATA KDOB:[birth year] (29 yo F)Acc No.[id number]:10/23/2024 Patient: Kallie Lillian THOMAS :1995 A ge:29 Y S ex:Female Address:[address] [place] [address] * true * Date: Generated for Jose Guadalupei solomon/Alexandrea/eTransmitting on: 0 04/03/2025 08:55 AM EDT
--- OUTSIDE RECORDS SUMMARY | 2025-04-02 14:20 | XMS_ITS | Encounter Summary ---
Author Organization [facility] Address [address] [place] [address] Care Team Providers Care Nc Machinist Name Role Phone Mahendra Mustafa MD Primary Care Provider [phone] Reason for Visit * Reason Comments Amenorrhea Pt present today to discuss missed menses w/negative tests. Encounter Details Date Type Department Care Team (Late st Contact Info) Description 04/02/2025 2:20 PM EDT Office Visit AB [facility]DR[facility] [address] [facility] [address] Carmine Cruz DO [address] [place] [address] Amenorrhea; PCOS (polycystic ovarian syndrome); Abnormal uterine bleeding (AUB) Social History Tobacco Use Types Packs/Day Years Used Date Smoking Tobacco: Former Cigarettes Alcohol Use Standard Drinks/Week Comments Never 0 (1 standard drink = 0.6 oz pure alcohol) caffeine intake: 1-2 cups per day; soda Comments No Sex and Gender Information Value Date Recorded Sex Assigned at Not on file Legal Sex Female 6:56 PM EDT Gender Identity Not on file Sexual Orientation Not on file documented as of this encounter Last Filed Vital Signs Vital Sign Reading Time Taken Comments Blood Pressure 130/82 04/02/2025 2:37 PM EDT Pulse - - Temperature - - Respiratory Rate - - Oxygen Saturation - - Inhaled Oxygen Concentration - - Weight 122 kg (268 lb) 04/02/2025 2:37 PM EDT Height 165.1 cm (5' 5 ) 04/02/2025 2:37 PM EDT Body Mass Index 44.6 04/02/2025 2:37 PM EDT documented in this encounter Plan of Treatment Upcoming Encounters Date Type Department Care Team (Late st Contact Info) Description 04/18/2025 8:30 AM EDT Ancillary Procedure AB KENDRICK [address] [facility] [place] [address] 2025 2:40 PM EDT Procedure Visit AB K[facility]DRICK [address] [place] [address] Carmine Cruz DO [address] [place] [address] Scheduled Orders Name Type Priority Associated Diagnoses Orde r Schedule hCG, quantitative, Lab Routine Amenorrhea PCOS (polycystic ovarian syndrome) Abnormal uterine bleeding (AUB) Ordered: 04/02/2025 TSH Lab Routine Amenorrhea PCOS (polycystic ovarian syndrome) Abnormal uterine bleeding (AUB) Ordered: 04/02/2025 T4, free Lab Routine Amenorrhea PCOS (polycystic ovarian syndrome) Abnormal uterine bleeding (AUB) Ordered: 04/02/2025 CBC and differential Lab Routine Amenorrhea PCOS (polycystic ovarian syndrome) Abnormal uterine bleeding (AUB) Ordered: 04/02/2025 Follicle stimulating hormone Lab Routine Amenorrhea PCOS (polycystic ovarian syndrome) Abnormal uterine bleeding (AUB) Ordered: 04/02/2025 Luteinizing hormone Lab Routine Amenorrhea PCOS (polycystic ovarian syndrome) Abnormal uterine bleeding (AUB) Ordered: 04/02/2025 Hemoglobin A1c Lab Routine Amenorrhea Abnormal uterine bleeding (AUB) Ordered: 04/02/2025 DHEA-sulfate Lab Routine Amenorrhea PCOS (polycystic ovarian syndrome) Abnormal uterine bleeding (AUB) Ordered: 04/02/2025 DHEA Lab Routine Amenorrhea PCOS (polycystic ovarian syndrome) Abnormal uterine bleeding (AUB) Expected: 04/02/2025 (Approximate), Expires: 04/02/2026 US Pelvis w/ TV Imaging Routine Amenorrhea PCOS (polycystic ovarian syndrome) Abnormal uterine bleeding (AUB) Expected: 04/02/2025, Expires: 04/02/2026 Prolactin Lab Routine Amenorrhea Abnormal uterine bleeding (AUB) Ordered: 04/02/2025 documented as of this encounter Procedures Procedure Name Priority Date/Time Associated Diagnosis Comments POCT , URINE Routine 04/02/2025 3:05 PM EDT Amenorrhea documented in this encounter Results * POCT , urine manually resulted (04/02/2025 3:05 PM EDT) Preg Test, Ur Negative Negative Urine 04/02/2025 3:05 PM EDT Carmine Nancy DO POINT OF CARE TEST ENTER/EDIT OR DERABLES Final Result documented in this encounter Visit Diagnoses Diagnosis Amenorrhea Absence of menstruation PCOS (polycystic ovarian syndrome) Polycystic ovaries Abnormal uterine bleeding (AUB) documented in this encounter Care Teams Nc Machinist Relationship Specialty Start Date End Date Mahendra Mustafa MD [address] [place] [address] PCP - General Family Medicine 02/02/23 documented as of this encounter
--- OUTSIDE RECORDS SUMMARY | 2025-04-03 08:54 | XMS_ITS | Encounter Summary ---
Author Organization [facility] Address [address] [facility] [place] [address] Care Team Providers Care Natural Resource Economist Name Role Phone Mahendra Mustafa MD Primary Care Provider [phone] Encounter Details Date Type Department Care Team (Late Contact Info) Description 12/31/2022 Abstract [facility] [place] [address] Carmine Cruz DO [facility] [place], [facility] Social History Tobacco Use Types Packs/Day Years Used Date Smoking Tobacco: Every Day Cigarettes Tobacco Cessation:Ready to Q uit: Not Asked; Counseling Given: Not Answered Alcohol Use Standard Drinks/Week Comments Never 0 (1 standard drink = 0.6 oz pure alcohol) caffeine intake: 1-2 cups per day; soda Comments Unknown Sex and Gender Information Value Date Recorded Sex Assigned at Not on file Legal Sex Female 6:56 PM EDT Gender Identity Not on file Sexual Orientation Not on file documented as of this encounter Plan of Treatment Upcoming Encounters Date Type Department Care Team (Late st Contact Info) Description 04/18/2025 8:30 AM EDT Ancillary Procedure [facility] [place] [address] 2025 2:40 PM EDT Procedure Visit AB KENDRICK [facility] [place] [address] Carmine Cruz DO [address] [place] [address] [place] [address] documented as of this encounter Visit Diagnoses Not on filedocumented in this encounter Care Teams Natural Resource Economist Relationship Specialty Start Date End Date Mahendra Mustafa MD [address] [facility] [place] [phone] PCP - General Family Medicine 02/02/23 documented as of this encounter
--- OUTSIDE RECORDS SUMMARY | 2025-04-03 08:54 | XMS_ITS | Clinical Summary ---
Author Organization [facility] Address [address] [place] [address] Care Team Providers Care Hat And Cap Parts Cutter Hand Name Role Phone Mahendra Mustafa MD Primary Care Provider [phone] Allergies No known active allergies Medications medroxyPROGESTERon e (Depo-Provera) 150 MG/ML suspension prefilled syringe injection syringeIndications : control counseling INJECT 1 ML (150 MG) INTO THE SHOULDER, THIGH, OR BUTTOCKS EVERY 3 MONTHS 1 mL 3 4 Active medroxyPROGESTERon e (Depo-Provera) 150 MG/ML suspension prefilled syringe injection syringeIndications :Encounter for surveillance of injectable contraceptive Inject 1 mL (150 mg) into the shoulder, thigh, or buttocks 1 (one) time for 1 dose 1 mL 4 Active medroxyPROGESTERon e (Provera) 10 MG tabletIndications: Amenorrhea,Abnorma l uterine bleeding (AUB) Take 1 tablet (10 mg) by mouth Daily Take 1 tablet by mouth daily for 7 days beginning on day 16 of the menstrual cycle. 10 tablet 3 5 04/02/20 26 Active Hospital, Clinic, or Other Facility Administered Medication Ordered Dose Route Frequency Start Date End Date Status medroxyPROGESTERone (Depo-Provera) injection 150 mgIndications:Depo-Provera contraceptive status 150 mg IM Once 01/03/2023 Acti ve medroxyPROGESTERone (Depo-Provera) injection 150 mgIndications:Depo-Provera contraceptive status 150 mg IM Once 02/02/2023 Acti ve Active Problems Problem Noted Date Diagnosed Date Encounter for surveillance of injectable contrac eptive 06/29/2024 Menstrual disorder 02/01/2023 Encounters Date Type Department Care Team Description 04/02/2025 2:20 PM EDT Office Visit [facility] [place] [address] Carmine Cruz DO Amenorrhea; PCOS (polycystic ovarian syndrome); Abnormal uterine bleeding (AUB) 04/02/2025 Bamboo flowsheet [facility] [place] [address] Carmine Cruz DO from Last 3 Months Family History Relation Name Status Comments Father Alive Mother Alive Social History Tobacco Use Types Packs/Day Years Used Date Smoking Tobacco: Former Cigarettes Tobacco Cessation:Counseling Given: Not Answered Alcohol Use Standard Drinks/Week Comments Never 0 (1 standard drink = 0.6 oz pure alcohol) caffeine intake: 1-2 cups per day; soda Comments No Sex and Gender Information Value Date Recorded Sex Assigned at Not on file Legal Sex Female 6:56 PM EDT Gender Identity Not on file Sexual Orientation Not on file Last Filed Vital Signs Vital Sign Reading Time Taken Comments Blood Pressure 130/82 04/02/2025 2:37 PM EDT Pulse - - Temperature - - Respiratory Rate - - Oxygen Saturation - - Inhaled Oxygen Concentration - - Weight 122 kg (268 lb) 04/02/2025 2:37 PM EDT Height 165.1 cm (5' 5 ) 04/02/2025 2:37 PM EDT Body Mass Index 44.6 04/02/2025 2:37 PM EDT Plan of Treatment Upcoming Encounters Date Type Department Care Team (Late st Contact Info) Description 04/18/2025 8:30 AM EDT Ancillary Procedure [facility] [place] [address] 2025 2:40 PM EDT Procedure Visit [facility] [place] [address] Carmine Cruz DO [address] [place], [place] [address]Daniela [place], [place] [id number] Procedures Procedure Name Priority Date/Time Associated Diagnosis Comments POCT , URINE Routine 04/02/2025 3:05 PM EDT Amenorrhea from Last 3 Months Results * POCT , urine manually resulted (04/02/2025 3:05 PM EDT) Preg Test, Ur Negative Negative Urine 04/02/2025 3:05 PM EDT Carmine Nancy DO POINT OF CARE TEST ENTER/EDIT OR DERABLES Final Result from Last 3 Months Insurance BC[employer] Care Teams Hat And Cap Parts Cutter Hand Relationship Specialty Start Date End Date Mahendra Mustafa MD [address] [place] [address] [phone] PCP - General Family Medicine 02/02/23
--- OUTSIDE RECORDS SUMMARY | 2025-04-03 08:54 | XMS_ITS | Encounter Summary ---
Author Organization [facility] Address [address] [facility] [place] [address] Care Team Providers Care Radio Aerial Installer Name Role Phone Mahendra Mustafa MD Primary Care Provider [phone] Encounter Details Date Type Department Care Team (Late Contact Info) Description 04/02/2025 Bamboo flowsheet [facility] [address] [place] [address] Carmine Cruz DO [address] [place] [address] Pérez [place], [place] [address] Social History Tobacco Use Types Packs/Day Years [...] Description 04/18/2025 8:30 AM EDT Ancillary Procedure [facility] [address] [place] [address] 2025 2:40 PM EDT Procedure Visit [facility] [address] [place] [address] Carmine Cruz DO [address] [place], [place] [address] documented as of this encounter Visit Diagnoses Not on filedocumented in this encounter Care Teams Radio Aerial Installer Relationship Specialty Start Date End Date Mahendra Mustafa MD [address] [place] [address] PCP - General Family Medicine 02/02/23 documented as of this encounter
--- OUTSIDE RECORDS SUMMARY | 2025-04-03 08:55 | XMS_ITS | Encounter Summary ---
Author Organization [facility] Address [address] [facility] [place] [address] Care Team Providers Care Electrical Engineering Intern Name Role Phone Mahendra Mustafa MD Primary Care Provider [phone] Encounter Details Date Type Department Care Team (Late Contact Info) Description 03/14/2024 Orders Only [facility] [address] [facility] [place] [place] [address] Tasneem Rene LPN [address] [facility] [place], [place] [address] Social History Tobacco Use Types Packs/Day Years Used Date Smoking Tobacco: Every Day Cigarettes Alcohol Use Standard Drinks/Week Comments Never [...] EDT Ancillary Procedure [facility] [address] [facility] [place] [place] [address] 2025 2:40 PM EDT Procedure Visit [facility] [address] [facility] [place] [place] [address] Carmine Cruz DO [address] [facility] [address] Ty [place], [facility] documented as of this encounter Procedures Procedure Name Priority Date/Time Associated Diagnosis Comments PAP SMEAR Routine 07/14/2022 12:00 AM EST documented in this encounter Results * Pap Smear (07/14/2022 12:00 AM EST) Swab Cervical swab / Unknown us Nancy Nurse [facility] CYTOLOGY ORDERABLES Final Result EXTERNAL LAB documented in this encounter Visit Diagnoses Not on filedocumented in this encounter Care Teams Electrical Engineering Intern Relationship Specialty Start Date End Date Mahendra Mustafa MD [address] [place] [address] PCP - General Family Medicine 02/02/23 documented as of this encounter
--- OUTSIDE RECORDS SUMMARY | 2025-04-03 08:55 | XMS_ITS | Patient Health Record ---
Author Organization [facility] [place] Address [address] [place] [address] Care Team Providers Care Board Layer Name Role Phone José Miguel Mustafa Primary Care Provider Allergies No Known Allergies Results Component Value Reference Range Notes XR ANKLE LT 2V Reviewed date:10/23/2024 04:16:32 PM Interpretation: Performing Lab: Notes/Report: Source Facility: [place] [address] XRay Report Signed Patient: LETICIA ZAPATA MR#: [id number] : 1995 Acct:[id number] Age/Sex: 29 / F ADM Date: 10/23/24 Loc: RAD Attending Dr: Dora Mustafa M.D. Ordering Physician: Dora Mustafa M.D. Date of Service: 10/23/24 Procedure(s): XR ankle LT 2V Accession Number(s): [id number] cc: Dora Mustafa M.D. [place] [id number] Patient Name: LETICIA ZAPATA MRN: [id number] date: 1995 Sex: F Assigned Patient Location: RAD Current Patient Location: RAD Accession/Order Number: [id number] Exam Date: 10/23/2024 09:38 Report Date: 10/23/2024 09:43 At the request of: DORA MUSTAFA MD Procedure: XR foot LT 2V Clinical data: Left foot and ankle pain for the past 2 weeks, greatest at the arch. No injury. LEFT ANKLE - 2 views COMPARISON: 12/29/2014 AP and lateral views were obtained. There is no evidence of fracture or dislocation. The talar dome is intact. The soft tissues are still mildly prominent. XR/XR ankle LT 2V IMPRESSION: NO ACUTE BONY FINDINGS. LEFT FOOT - 3 views COMPARISON: AP and lateral views were obtained. There is no evidence of fracture or dislocation. There are no significant soft tissue abnormalities. IMPRESSION: NO ACUTE BONY FINDINGS. Impression dictated by: Lorene Angulo M.D.10/23/2024 9:43 AM Dictation Location: [place] [address] Electronically authenticated by: [id number] Y Date: 10/23/2024 09:43 Dictated By: Lorene Angulo M.D. Signed By: 10/23/2445 DD/ 2 TD/TT: Personal Financial Planner: [place] [address] XRay Report Signed Patient: MIRIAM ZAPATA MR#: [id number] : 1995 Acct:[id number] Age/Sex: 29 / F ADM Date: 10/23/24 Loc: RAD Attending Dr: Dora Mustafa M.D. Ordering Physician: Dora Mustafa M.D. Date of Service: 10/23/24 Procedure(s): XR ankle LT 2V Accession Number(s): [id number] cc: Dora Mustafa M.D. [place] [address] Patient Name: LETICIA ZAPATA MRN: [id number] date: 1995 Sex: F Assigned Patient Location: RAD Current Patient Location: [facility] Accession/Order Numb er: [id number] Exam Date: 10/23/2024 09:38 Report Date: 10/23/2024 09:43 At the request of: DORA MUSTAFA MD Procedure: XR foot LT 2V Clinical data: Left foot and ankle pain for the past 2 weeks, greatest at the arch. No injury. LEFT ANKLE - 2 views COMPARISON: 12/29/2014 AP and lateral views were obtained. There is no evidence of fracture or dislocation. The mary ar dome is intact. The soft tissues are still mildly prominent. X R/XR ankle LT 2V IMPRESSION: NO ACUTE BONY FINDINGS. LEFT FOOT - 3 views COMPARISON: AP and lateral views were obtained. There is no evidence of fracture or dislocation. There a re no significant soft tissue abnormalities. IMPRESSION: NO ACUTE BONY FINDINGS. Impression dictated by: Lorene Angulo M.D.10/23/2024 9:43 AM Dictation Location: [place] [address] Electronically authe nticated by: [id number] Y Date: 10/23/2024 09:43 Dictated By: Lorene Angulo M.D. Signed By: 10/23/24 0945 DD/ TD/TT: Personal Financial Planner: XR FOOT LT 2V Reviewed date:10/23/2024 04:16:32 PM Interpretation: Performing Lab: Notes/Report: Source Facility: [place] [address] XRay Report Signed Patient: LETICIA ZAPATA MR#: [id number] : 1995 Acct:[id number] Age/Sex: 29 / F ADM Date: 10/23/24 Loc: RAD Attending Dr: Dora Mustafa M.D. Ordering Physician: Dora Mustafa M.D. Date of Service: 10/23/24 Procedure(s): XR foot LT 2V Accession Number(s): [id number] cc: Dora Mustafa M.D. [place] [address] Patient Name: LETICIA ZAPATA MRN: [id number] date: 1995 Sex: F Assigned Patient Location: RAD Current Patient Location: RAD Accession/Order Number: [id number] Exam Date: 10/23/2024 09:38 Report Date: 10/23/2024 09:43 At the request of: DORA MUSTAFA MD Procedure: XR foot LT 2V Clinical data: Left foot and ankle pain for the past 2 weeks, greatest at the arch. No injury. LEFT ANKLE - 2 views COMPARISON: 12/29/2014 AP and lateral views were obtained. There is no evidence of fracture or dislocation. The talar dome is intact. The soft tissues are still mildly prominent. XR/XR foot LT 2V IMPRESSION: NO ACUTE BONY FINDINGS. LEFT FOOT - 3 views COMPARISON: AP and lateral views were obtained. There is no evidence of fracture or dislocation. There are no significant soft tissue abnormalities. IMPRESSION: NO ACUTE BONY FINDINGS. Impression dictated by: Lorene Angulo M.D.10/23/2024 9:43 AM Dictation Location: [place] [address] Electronically authenticated by: [id number] Y Date: 10/23/2024 09:43 Dictated By: Lorene Angulo M.D. Signed By: 10/23/2446 DD/ 2 TD/TT: Personal Financial Planner: [place] [address] XRay Report Signed Patient: MIRIAM ZAPATA MR#: [id number] : 1995 Acct:[id number] Age/Sex: 29 / F ADM Date: 10/23/24 Loc: [facility] Attending Dr: Dora Mustafa M.D. Ordering Physician: Dora Mustafa M.D. Date of Service: 10/23/24 Procedure(s): XR foot LT 2V Accession Number(s): [id number] cc: Dora Mustafa M.D. [place] [id number] Patient Name: LETICIA ZAPATA MRN: [id number] date: 1995 Sex: F Assigned Patient Location: RAD Current Patient Location: [facility] Accession/Order Numb er: [id number] Exam Date: 10/23/2024 09:38 Report Date: 10/23/2024 09:43 At the request of: DORA MUSTAFA MD Procedure: XR foot LT 2V Clinical data: Left foot and ankle pain for the past 2 weeks, greatest at the arch. No injury. LEFT ANKLE - 2 views COMPARISON: 12/29/2014 AP and lateral views were obtained. There is no evidence of fracture or dislocation. The mary ar dome is intact. The soft tissues are still mildly prominent. X R/XR foot LT 2V IMPRESSION: NO ACUTE BONY FINDINGS. LEFT FOOT - 3 views COMPARISON: None AP and lateral views were obtained. There is no evidence of fracture or dislocation. There a re no significant soft tissue abnormalities. IMPRESSION: NO ACUTE BONY FINDINGS. Impression dictated by: Lorene Angulo M.D.10/23/2024 9:43 AM Dictation Location: [place] [address] Electronically authe nticated by: [id number] Y Date: 10/23/2024 09:43 Dictated By: Lorene Angulo M.D. Signed By: 10/23/24 0946 DD/ TD/TT: Personal Financial Planner: Reason For Referral No Information Medications Medication SIG (Take, Route, Frequency, Duration) Notes Start Date End Date Status Daypro 600 MG Take 2 tablets Orall y once daily for 10 days 10/22/2024 Active Social History Tobacco Use: Social History [...] ast year? No Points 0 Interpretation Negative Problems Problem Type SNOMED Code ICD Code Onset Dates Problem Status W/U Status Risk Notes Problem Plantar fasciitis (693118272) Plantar fasciitis (M72.2) Active confirmed Problem Streptococcal sore throat (disorder) (28272488) Strep pharyngitis (J02.0) Active confirmed Problem Intermenstrual bleeding - irregular (67395401) Excessive, frequent and irregular menstruation (N92.1) Active confirmed Vital Signs Blood pressure diastolic 96 mm Hg 10/11/2024 Height 65 in 10/11/2024 Blood pressure systolic 140 mm Hg 10/11/2024 Weight 272.2 lbs 10/11/2024 BMI 45.29 kg/m2 10/11/2024 Encounters Encounter Location Date Provider Diagnosis [facility] [address] [place] [address] 10/22/2024 José Miguel Hoy Plantar fasciitis M72.2 and Left foot pain M79.672 [facility] [address] [place] [address] 10/23/2024 José Miguel Hoy [facility] [address] [place] [address] 10/11/2024 José Miguel Hoy Plantar fasciitis M72.2 Assessments Encounter Date Diagnosis (ICD Code) Assessment Notes Treatment Notes Treatment Clinical Notes Section Notes 10/11/2024 Plantar fasciitis (ICD-10 - M72.2) 10/22/2024 Plantar fasciitis (ICD-10 - M72.2) 10/22/2024 Left foot pain (ICD-10 - M79.672) Plan Of Treatment Pending Test Test Name Order Date ECG with Interpretation 09/15/2023 XR Ankle 2 Views Left 10/22/2024 BNP 09/15/2023 CBC AUTO DIFF 09/15/2023 LIVER PROFILE 09/15/2023 PROF CHEM 8 (BAS METB) 09/15/2023 SED RATE WESTERGREN 09/15/2023 THYROID PROFILE WITH TSH 09/29/2023 THYROID PANEL (T4/TSH/FREE T3) 4 ECHOCARDIO M/2D COMPLETE 09/15/2023 XR FOOT 1-2 VIEWS LEFT 10/22/2024 Insurance Providers Payer Name Payer Address Payer Phone Subscriber Number Group Number Insured Name Patient Relationship to Insured Coverage Start Date Coverage End Date [employer] PPO PLUS LOCAL PLAN [address] [place] [address] [id number] Ector Zapata Spouse - patient is the spouse of the insured 3 Medical (General) History Medical History History ICD Code DUB (dysfunctional uterine bleeding) N93 .8 COVID-19 U07.1 IBS (irritable bowel syndrome) K58.9 Murmur, cardiac R01.1 Calculus in salivary duct K11.5 Surgical History Surgery Date(Month/Year) c section appendectomy cystoscopy 2016 right shoulder arthroscopy 2002 Hospitalization History Reason Date(Month/Year) kidney stone 2016
--- OUTSIDE RECORDS SUMMARY | 2025-04-03 09:12 | XMS_ITS | CCD ---
Author Organization [facility] Care Team Providers Care Factory Laborer Name Role Phone ELLA CANAS Admitting Unavailable ELLA CANAS Attending Unavailable LOR ., DR JOHN Primary Care Unavailable ELLA CANAS Consulting Unavailable LOR ., DR JOHN Admitting Unavailable LOR ., DR JOHN Attending Unavailable LOR ., DR JOHN Primary Care Unavailable LOR ., DR JOHN Consulting Unavailable [place], DR CHUCKIE Escalante Consulting Unavailable MAXINE VELIZ Attending Unavailable Dora Mustafa MD Primary Care Provider [phone] Dora Mustafa MD Primary Care Provider [phone] Medications Current Medications Medication Drug Class(es) Dates Sig (Normalized) Sig (Original) 1 ml medroxyPROGESTERone acetate 150 mg/ml prefilled syringe (20 sources) Progestin Start: medroxyPROGESTERone (Depo-Provera) 150 MG/ML suspension prefilled syringe injection syringe Indications: Encounter for surveillance of injectable contraceptive Inject 1 mL (150 mg) into the shoulder, thigh, or buttocks 1 (one) time for 1 dose 1 mL 06/29/2024 Active Start: 02-01-2023 medroxyPROGEST ERone (Depo-Provera) 150 MG/ML suspension prefilled syringe injection syringe Indications: control counseling INJECT 1 ML (150 MG) INTO THE SHOULDER, THIGH, OR BUTTOCKS EVERY 3 MONTHS 1 mL 3 03/27/2024 Active Start: 01-03-2023 medroxyPROGEST ERone (Depo-Provera) injection 150 mg Start: 10-04-2022 Depo-SubQ Prov era 104 104 MG/0.65ML injection USE 1 INJECTION INTRAMUSCULARLY EVERY 12 WEEKS 10/04/2022 Active Problems Active Problems Problem Classification Problem Date Documented Date Episodic/Chronic Immunizations and screening for infectious disease (1 source) Encounter for screening for human papillomavirus (HPV); Translations: [ENC SCREENING HUMAN PAPILLOMAVIRUS] Onset: 07-21-2022 Episodic Menstrual disorders (9 sources) Excessive and frequent menstruation with irregular cycle; Translations: [Disorder of menstruation] Onset: 10-08-2022 Chronic Other screening for suspected conditions (not mental disorders or infectious disease) (4 sources) Encounter for screening for malignant neoplasm of cervix; Translations: [ENC SCREENING MALIG NEOPLASM CERV] Onset: 07-14-2022 Episodic Ovarian cyst (1 source) Other ovarian cyst, left side; Translations: [OTHER OVARIAN CYST LEFT SIDE] Onset: 10-16-2022 Episodic Past or Other Problems Problem Classification Problem Date Documented Date Episodic/Chronic Contraceptive and procreative management (1 source) Contraception ; Translations: [Encounter for surveillance of injectable contraceptive] Onset: 06-29-2024 06-29-2024 Episodic Results Test Name Value Interpretation Reference Range Facil ity IGP,APTIMA HPV,AGE GDLNon AGE GDLN ACOG TESTING Note . [facility] Comment on above: TESTS RESULT FLAG UN ITS REF RANGE LAB Clinician Provided Cytology Information Source.............Cervix;Endocervix No. of containers..01 ThinPrep Vial Age Algo ACOG Shayy... FLAG LEGEND: L-Low Normal,H-High Normal,LL-Alert Low,HH-Alert High <-Panic Low,>-Panic High,A-Abnormal,AA-Critical Abnormal Performed at: 01 =G [facility] [place] [address] Gwendolyn Puente MD, IGP, RFX APTIMA HPV ASCU Note . [facility] Comment on above: TESTS RESULT FLAG UN ITS REF RANGE LAB DIAGNOSIS: 02 NEGATIVE FOR INTRAEPITHELIAL LESION OR MALIGNANCY. Specimen adequacy: 02 Satisfactory for evaluation. Endocervical and/or squamous metaplastic cells (endocervical component) are present. Performed by: 02 Valerie Gutierrez, Gambling Cashier ([facility]) . 02 Note: Note 02 The Pap [...] <-Panic Low,>-Panic High,A-Abnormal,AA-Critical Abnormal Performed at: 02 WB [facility] [address] [place] [address] Gwendolyn Puente MD, Performed at: =G - [facility] [address], [place] [id number] Leak Patcher: Gwendolyn Puente MD, Phone: [phone] Performed at: - [facility] [address], [place] [id number] Leak Patcher: Gwendolyn Puente MD, Phone: [phone] BRUSH-SPATULA CERVIX ENDOCERVIX [facility] US PELVIS TRANSVAGon 023 [...] by: CHUCKIE BANSAL Date: 2022-10-09 11:42 Normal [facility] PAP ACOG PANEL 2: 22 to 29on 07-29-2022 . . Normal [facility] Comment on above: Result Comment: Perf ormed at: WB Performed By: #### [id number] #### [facility] [address] [address] [address] Nba Baker Age Gdln ACOG Testing 22- Normal [facility] Comment on above: Performed By: #### [id number] #### [facility] [address] [address] [address] Nba Baker DIAGNOSIS: Comment Normal [facility] Comment on above: Result Comment: NEGA TIVE FOR INTRAEPITHELIAL LESION OR MALIGNANCY. THIS SPECIMEN WAS RESCREENED PART OF OUR LEARNING DESIGN SPECIALIST PROGRAM. Performed at: WB Performed By: #### [id number] #### [facility] [address] [place] [address] Dr. Nba Baker Methodology: Comment [facility] Comment on above: Result Comment: This liquid based ThinPrep(R) pap test was screened with the use of an image guided system. Performed at: WB Performed By: #### [id number] #### [facility] [address] [place] [address] Dr. Nba Baker Note: Comment Normal [facility] Comment on above: Result Comment: The Pap smear is a screening test designed to aid in the detection of premalignant and malignant conditions of the uterine cervix. It is not a diagnostic procedure and should not be used as the sole means of detecting cervical cancer. Both false-positive and false-negative reports do occur. . Performed at: WB Performed By: #### [id number] #### [facility] [address] [place] [address] Dr. Nba Baker Performed by: Comment Normal [facility] Comment on above: Result Comment: Jean-Paul Mercado, Gambling Cashier (ASCP) Performed at: [facility] Performed By: #### [id number] #### [facility] [address] [place] [address] Dr. Nba Baker QC reviewed by: Comment Normal [facility] Comment on above: Result Comment: Justin Jaeger, Gambling Cashier (ASCP) Performed at: WB Performed By: #### [id number] #### [facility] [address] [place] [address] Dr. Nba Baker Reflex Criteria: Comment Normal [facility] Comment on above: Result Comment: The HPV DNA reflex criteria were not met with this specimen result therefore, no HPV testing was performed. . Performed at: WB Performed By: #### [id number] #### [facility] [address] [place] [address] Dr. Nba Baker Specimen adequacy: Comment [facility] Comment on above: Result Comment: Sati sfactory for evaluation. Endocervical and/or squamous metaplastic cells (endocervical component) are present. Performed at: WB Performed By: #### [id number] #### [facility] [address] [place] [address] Dr. bNa Baker Vital Signs Date Time Vital Sign Value Performing Clinician Antonio cedeno 03-27-2024 11:040 Body height 165.1 cm Maxine SULLIVAN Work Phone: [facility] 03-27-2024 11:040 Body mass index (BMI) [Ratio] 44.43 kg/m2 Maxine SULLIVAN Work Phone: [facility] 03-27-2024 11: Body weight 121.11 kg Maxine SULLIVAN Work Phone: [facility] 03-27-2024 11:-040 Diastolic blood pressure 80 mm[Hg] Maxine SULLIVAN Work Phone: [facility] 03-27-2024 11:-040 Systolic blood pressure 120 mm[Hg] Maxine SULLIVAN Work Phone: [facility] Encounters Encounter Date Encounter Type Care Provider Facility Start: 04-02-2025 End: 04-02-2025 Bamboo flowsheet Ella Nancy DO Work Phone: [facility] Start: 04-02-2025 End: 04-02-2025 Bamboo flowsheet Ella Nancy DO Work Phone: [facility] Start: 03-30-2024 End: 03-30-2024 ambulatory MAXINE VELIZ Not Available Start: 03-27-2024 End: 03-27-2024 Bamboo flowsheet Maxine SULLIVAN Work Phone: [facility] Start: 03-27-2024 End: 03-30-2024 Bamboo flowsheet Maxine SULLIVAN Work Phone: [facility] Start: 03-27-2024 End: 03-30-2024 [facility] Result Encounter Maxine SULLIVAN Work Phone: [facility] External Department Unsolicited Start: 03-27-2024 End: 03-27-2024 Patient encounter procedure Maxine SULLIVAN Work Phone: [facility] Start: 03-27-2024 End: 03-27-2024 Periodic preventive med est patient 18-39 yrs Maxine SULLIVAN Work Phone: [facility] Comment on above: Well woman exam with routine gynecological exam Start: 03-27-2024 End: 03-27-2024 ambulatory MAXINE VELIZ Not Available Start: 12-30-2023 End: 12-30-2023 ambulatory MAXINE VELIZ Not Available Start: 10-07-2023 End: 10-07-2023 ambulatory MAXINE VELIZ Not Available Start: 07-21-2023 End: 07-21-2023 ambulatory MAXINE VELIZ Not Available Start: 10-08-2022 End: 10-09-[address] DORA MUSTAFA . Facility: Start: 07-14-2022 End: 07-14-2022 ambulatory ELLA CANAS Facility: Procedures Date Procedure Procedure Detail Performing Clinician Start: 03-27-2024 IGP,APTIMA HPV,AGE GDLN Maxine SULLIVAN Work Phone: Plan of Treatment Date Care Activity Detail Author Start: 06-29-2024 End: 06-29-2024 Clinical Support 06/29/2024 9:10 AM EST Clinical Support [facility] [address] [place] [phone] [facility] Start: 03-30-2024 End: 03-30-2024 Clinical Support 03/30/2024 9:00 AM EDT Clinical Support [facility] [address] [place] [phone] [facility] Start: 03-27-2024 End: 03-27-2024 Patient encounter procedure 03/27/2024 11:00 AM EDT Office Visit [facility] [address] [place] [phone] Maxine Veliz PA [address] [place] [address] Arrived [facility] Comment on above: Arrived Cytology Cervical or vaginal smear or scraping study Pap Smear Pathology and Cytology Routine Well woman exam with routine gynecological exam Ordered: 03/27/2024 [facility] Work Phone: Comment on above: Ordered: 03/27/2024 Payers Date Payer Category Payer [facility] BCBS [id number] 2022 Unknown BCBS BCBS [id number] [id number] 2022-Present [phone] [id number] [place], [place] [address] [id number] 1996 Unknown [id number] 1996 Unknown [id number] 1996 Unknown [id number] [id number] 1996 Unknown [id number] [id number] 1996 Unknown [id number] 1259 1996 Unknown [id number] [id number] 1996 Unknown [id number] [id number] 1959 Unknown [id number] 1959 Unknown [id number] Social History Date Type Detail Facility Start: 03-27-2024 Tobacco smoking stat [facility] Ex-smoker [facility] History of tobacco use Current smoker [facility] History of tobacco use Cigarette Smoker [facility] Start: 03-27-2024 End: 03-30-2024 Alcoholic beverage intake Lifetime non-drinker (finding) [facility] Start: 02-02-2023 End: 03-27-2024 History of Social function [facility] Start: 02-02-2023 End: 03-27-2024 Tobacco use panel [facility] Start: 12-29-2022 Alcohol Comment caffeine intak e: 1-2 cups per day; soda [facility] Start: 1995 Sex assigned at Not on file [facility] Start: 12-29-2022 Tobacco smoking stat [facility] Smokes tobacco daily [facility] History of [...] OTHER SURGICAL HISTORY R shoulder scope DAP LA LAP,APPENDECTOMY 2016 REVIEW OF SYSTEMS Review of [...] nursing note reviewed. Exam conducted with a director media present. Vitals: Estimated body mass index is [...] DATE CREATED AUTHOR AUTHOR'S ORGANIZ ATION 04/01/2024 [facility] Specialists EPIC Reason for Visit (unrecogniz ed section and content) Reason Comments Well Women Visit Care Teams (unrecognized sec tion and content) Factory Laborer Relationship Specialty Start Date End Date Dora Mustafa MD [address] [place] [address] PCP - General Family Medicine 02/02/23 Factory Laborer Relationship Specialty Start Date End Date Dora Mustafa MD [address] [place] [address] PCP - General Family Medicine 02/02/23 Factory Laborer Relationship Specialty Start Date End Date Dora Mustafa MD [address] [place] [address] PCP - General Family Medicine 02/02/23 FOR [...] BE BASED ON THE PRIMARY CLINICAL RECORDS. [facility] [employer] [facility]. provides no warranty or guarantee of the accuracy or completeness of information in this document.
[2025-04-03 10:53] LABS: Hematocrit 44.0 % (36.0-48.0); Hemoglobin 14.7 g/dL (12.0-16.0); Immature Granulocytes Abs Auto 0.03 10^3/uL (0.00-0.03); Immature Granulocytes Pct Auto 0.3 % (0.0-0.5); Lymphocytes Absolute Auto 2.7 10^3/uL (1.2-3.8); Mean Corpuscular HGB Conc 33.4 g/dL (29.9-35.2); Mean Corpuscular Hemoglobin 30.1 pg (26.7-34.0); Mean Corpuscular Volume 90.2 fL (81.0-99.0); Platelet Count 355 10^3/uL (150-450); Red Blood Count 4.88 10^6/uL (4.20-5.40); White Blood Count 10.0 10^3/uL (4.0-11.0)
[2025-04-03 11:28] LABS: Thyroid Stimulating Hormone 3.215 uIU/mL (0.358-3.740)
[2025-04-04 12:10] LABS: FSH 4.4 mIU/mL (.)
== END 2025-04-03 08:49 | disposition home or self-care (01) ==
LOC: LAB 08:49
PROVIDERS: PCP Family Medicine; Visit Provider Obstetrics & Gynecology
DX: E28.2 Polycystic ovarian syndrome (principal); N93.9 Abnormal uterine and vaginal bleeding, unspecified
CPT/HCPCS: 36415; 82626; 82627; 83001; 83002; 83036; 84146; 84439; 84443; 84702; 85025

== ENCOUNTER 2025-04-29 08:40 | Outpatient (OUT) | payer BC, SELFPAY ==
--- OUTSIDE RECORDS SUMMARY | 2025-04-18 08:30 | XMS_ITS | Encounter Summary ---
Author Organization [facility] Address [address] [facility] [place] [address] Care Team Providers Care Buckle Sewer Name Role Phone Mahendra Mustafa MD Primary Care Provider [phone] Encounter Details Date Type Department Care Team (Latest Contact Info) Description 04/18/2025 8:30 AM EDT Ancillary Procedure [facility] [address] [place] [address] Amenorrhea; PCOS (polycystic ovarian syndrome); Abnormal uterine [...] Care Team (Late st Contact Info) Description 2025 2:40 PM EDT Procedure Visit [facility] [address] [place] [address] Carmine Cruz DO [address] [place], [place] [phone] documented as of this encounter Procedures Procedure Name Priority Date/Time Associated Diagnosis Comments US PELVIC COMPLETE W/ TV Routine 04/18/2025 9:17 AM EDT Amenorrhea PCOS (polycystic ovarian syndrome) Abnormal uterine bleeding (AUB) documented in this encounter Results * US Pelvis w/ TV (04/18/2025 9:17 AM EDT) Anatomical Region Laterality Modality Pelvis Ultrasound 04/18/2025 1:57 PM EDT Impressions 04/18/2025 2:10 PM EDT 1. Right ovarian benign cyst 2. Normal uterus TRANSCRIBED BY: ELECTRONICALLY SIGNED BY: Meño Cho MD Narrative 04/18/2025 2:10 PM EDT FINDINGS: Uterus 9.7 x 4.3 x 5.8 cm Endometrium 13 mm Right ovary 3.7 x 3.6 x 3.2 cm (cyst) Left ovary Not seen The uterus is normal in size and orientation. No worrisome mass lesions are seen. Endometrium appears unremarkable. Right ovarian 2.0 x 2.7 cm benign cyst. Left ovary not seen, no left adnexal mass. No pelvic fluid Procedure Note Meño Cho MD - 04/18/2025 FINDINGS: Uterus 9.7 x 4.3 x 5.8 cm Endometrium 13 mm Right ovary 3.7 x 3.6 x 3.2 cm (cyst) Left ovary Not seen The uterus is normal in size and orientation. No worrisome mass lesionsare seen. Endometrium appears unremarkable. Right ovarian 2.0 x 2.7 cm benign cyst. Left ovary not seen, no leftadnexal mass. No pelvic fluid IMPRESSION: 1. Right ovarian benign cyst 2. Normal uterus TRANSCRIBED BY: ELECTRONICALLY SIGNED BY: Meño Cho MD us Carmine Cruz DO [facility] [place] PROCEDURES Final Result documented in this encounter Visit Diagnoses Diagnosis Amenorrhea Absence of menstruation PCOS (polycystic ovarian syndrome) Polycystic ovaries Abnormal uterine bleeding (AUB) documented in this encounter Care Teams Buckle Sewer Relationship Specialty Start Date End Date Mahendra Mustafa MD [address] [place] [address] PCP - General Family Medicine 02/02/23 documented as of this encounter
--- OUTSIDE RECORDS SUMMARY | 2025-04-29 08:42 | XMS_ITS | Encounter Summary ---
Author Organization [facility] Address [address] [facility] [place] [address] Care Team Providers Care Rail Car Maintenance Mechanic Name Role Phone Mahendra Mustafa MD Primary Care Provider [phone] Encounter Details Date Type Department Care Team (Late Contact Info) Description 12/31/2022 Abstract [facility] [address] [place] [address] [place] [address] Carmine Cruz DO [facility] [address] [place], [place] [address] Social History Tobacco Use Types Packs/Day Years [...] PM EDT Procedure Visit [facility] [address] [place] [address] [place] [phone] Carmine Cruz DO [facility] [address] [place], [facility] documented as of this encounter Visit Diagnoses Not on filedocumented in this encounter Care Teams Rail Car Maintenance Mechanic Relationship Specialty Start Date End Date Mahendra Mustafa MD [address] [place] [phone] PCP - General Family Medicine 02/02/23 documented as of this encounter
--- OUTSIDE RECORDS SUMMARY | 2025-04-29 08:42 | XMS_ITS | Encounter Summary ---
Author Organization [facility] Address [address] [facility] [place] [address] Care Team Providers Care Manufacturer Agent Name Role Phone Mahendra Mustafa MD Primary Care Provider [phone] Encounter Details Date Type Department Care Team (Late Contact Info) Description 04/02/2024 Orders Only [facility] [address] [facility] [place] [address] Orquidea Wilson LPN [address] [place] [address] Social History Tobacco Use Types Packs/Day Years [...] EDT Procedure Visit [facility] [address] [facility] [address] Carmine Cruz DO [address] [facility] [address] [place] [id number] documented as of this encounter Procedures Procedure Name Priority Date/Time Associated Diagnosis Comments PAP SMEAR Routine 03/27/2024 12:00 AM EDT documented in this encounter Results * Pap Smear (03/27/2024 12:00 AM EDT) Swab Cervical swab / Unknown us Carmine Cruz DO LAB CYTOLOGY ORDERABLES Final Re sult EXTERNAL LAB documented in this encounter Visit Diagnoses Not on filedocumented in this encounter Care Teams Manufacturer Agent Relationship Specialty Start Date End Date Mahendra Mustafa MD [address] [place] [address] PCP - General Family Medicine 02/02/23 documented as of this encounter
--- OUTSIDE RECORDS SUMMARY | 2025-04-29 08:42 | XMS_ITS | Encounter Summary ---
Author Organization [facility] Address [address] [facility] [place] [address] Care Team Providers Care Jointer Submarine Cable Name Role Phone Mahendra Mustafa MD Primary Care Provider [phone] Encounter Details Date Type Department Care Team (Late Contact Info) Description 03/14/2024 Orders Only [facility] [place] [address] Tasneem Rene LPN [address] [facility] [address] [place] [address] Social History Tobacco Use Types Packs/Day Years [...] EDT Procedure Visit [facility] [address] [facility] [place] [address] Carmine Cruz DO [address] [facility] [address] [place] [id number] documented as of this encounter Procedures Procedure [...] on filedocumented in this encounter Care Teams Jointer Submarine Cable Relationship Specialty Start Date End Date Mahendra Mustafa MD [address] [place] [address] PCP - General Family Medicine 02/02/23 documented as of this encounter
--- OUTSIDE RECORDS SUMMARY | 2025-04-29 08:42 | XMS_ITS | Clinical Summary ---
Author Organization [facility] Address [address] [place] [address] Care Team Providers Care Automotive Tire Technician Name Role Phone Mahendra Mustafa MD Primary [...] Encounters Date Type Department Care Team Description 04/18/2025 8:30 AM EDT Ancillary [place] [address] Amenorrhea; PCOS (polycystic ovarian syndrome); Abnormal uterine bleeding (AUB) 04/16/2025 [place] [address] Carmine Cruz DO 04/09/2025 [place] [address] Zuleika Ruvalcaba MA 04/03/2025 Clinisync Result Encounter NOMS External Department Unsolicited Carmine Cruz DO 04/02/2025 2:20 PM EDT [place] [address] Carmine Cruz DO Amenorrhea; PCOS (polycystic ovarian syndrome); Abnormal uterine bleeding (AUB) 04/02/2025 Bamboo flowsheet [facility] [place] [address] Carmine Cruz DO from Last 3 [...] 2:40 PM EDT Procedure Visit [facility] [address] [phone] Carmine Cruz DO [address] [place] [address] Procedures Procedure Name Priority Date/Time Associated Diagnosis Comments US PELVIC COMPLETE W/ TV Routine 04/18/2025 9:17 AM EDT Amenorrhea PCOS (polycystic ovarian syndrome) Abnormal uterine bleeding (AUB) TBH PROLACTIN Routine 04/03/2025 10:25 AM EDT ALL FOLLICLE STIMULATING HORMONE Routine 04/03/2025 10:25 AM EDT ALL LUTEINIZING HORMONE Routine 04/03/2025 10:25 AM EDT ALL DHEA SULFATE Routine 04/03/2025 10:2 5 AM EDT TBH PREG QUANT HCG Routine 04/03/2025 10 :25 AM EDT ALL THYROID STIM HORMONE Routine 04/03/2025 10:25 AM EDT ALL THYROXINE (T4) FREE Routine 04/03/2025 10:25 AM EDT MLR HEMOGLOBIN A1C Routine 04/03/2025 10 :25 AM EDT ALL CBC WITH AUTO DIFF Routine 04/03/2025 10:25 AM EDT POCT , URINE Routine 04/02/2025 3:05 PM EDT Amenorrhea from Last 3 Months Results * US Pelvis w/ TV (04/18/2025 [...] ELECTRONICALLY SIGNED BY: Meño Cho MD us [facility] US PROCEDURES Final Result * TBH PROLACTIN (04/03/2025 10:25 AM EDT) PROLACTIN 8.4 4.8 - 33.4 ng/mL TBH Comment: Performed at: [address] [id number] Rural Route Mail Carrier: Garret Corado PhD, Phone: [phone] 04/03/2025 10:2 5 AM EDT 04/03/2025 10:47 AM EDT Narrative CLINISYNC - 04/04/2025 12:10 PM EDT Carminewade Phano DO CLINISYNC Final Result [facility] * TBH PREG QUANT HCG (04/03/2025 10:25 AM EDT) HCG QUANTITATIVE <1 mIU/mL TB Comment: 5-50 0.2-1 WEEK 50-500 1-2 WEEKS 100-5,000 2-3 WEEKS 500-10,000 3-4 WEEKS 1,000-50,000 4-5 WEEKS 10,000-100,000 5-6 WEEKS 15,000-200,000 6-8 WEEKS 10,000-100,000 2-3 MONTHS 04/03/2025 10:2 5 AM EDT 04/03/2025 10:47 AM EDT Narrative CLINISYNC - 04/03/2025 11:30 AM EDT [facility]ade [facility] Final Result Performing Organization Address [facility]/ZIP Co de Phone Number [facility] * MLR HEMOGLOBIN A1C (04/03/2025 10:25 AM EDT) GLYCOHEMOGLOBIN A1C 5.4 4.5 - 6.2 % TB Comment: ADA RECOMMENDED LIMIT 4.0 - 6.0 ADA THERAPEUTIC TARGET < 7.0 ACTION SUGGESTED > 7.0 ESTIMATED AVERAGE GLUCOSE 108 mg/dL TB 04/03/2025 10:2 5 AM EDT 04/03/2025 10:47 AM EDT Narrative CLINISYNC - 04/03/2025 11:03 AM EDT Carmine RIVERANC Final Result Performing Organization Address City/[facility]/ZIP Co de Phone Number [facility] * ALL THYROXINE (T4) FREE (04/03/2025 10:25 AM EDT) FREE T4 0.95 0.76 - 1.46 ng/dL TB 04/03/2025 10:2 5 AM EDT 04/03/2025 10:47 AM EDT Narrative CLINISYNC - 04/03/2025 11:28 AM EDT Carmine Nancy DO CLINISYNC Final Result Performing Organization Address [facility] Co de Phone Number [facility] * ALL THYROID STIM HORMONE (04/03/2025 10:25 AM EDT) THYROID STIMULATING HORMONE 3.215 0.358 - 3.740 uIU/mL TBH 04/03/2025 10:2 5 AM EDT 04/03/2025 10:47 AM EDT Narrative CLINISYNC - 04/03/2025 11:30 AM EDT Carmine Nancy DO CLINISYNC Final Result Performing Organization Address [facility] Phone Number [facility] * ALL LUTEINIZING HORMONE (04/03/2025 10:25 AM EDT) LUTEINIZING HORMONE(LH) 3.7 . mIU/mL TBH Comment: Adult Female Range Follicular phase 2.4 - 12.6 Ovulation phase 14.0 - 95.6 Luteal phase 1.0 - 11.4 Postmenopausal 7.7 - 58.5 04/03/2025 10:2 5 AM EDT 04/03/2025 10:47 AM EDT Narrative CLINISYNC - 04/04/2025 12:10 PM EDT Carmine Nancy DO CLINISYNC Final Result Performing Organization Address [facility] Co de Phone Number [facility] * ALL FOLLICLE STIMULATING HORMONE (04/03/2025 10:25 AM EDT) FSH 4.4 . mIU/mL TBH Comment: Adult Female Range Follicular phase 3.5 - 12.5 Ovulation phase 4.7 - 21.5 Luteal phase 1.7 - 7.7 Postmenopausal 25.8 - 134.8 04/03/2025 10:2 5 AM EDT 04/03/2025 10:47 AM EDT Narrative CLINISYNC - 04/04/2025 12:10 PM EDT Carmine Nancy DO CLINISYNC Final Result [facility] TB * ALL DHEA SULFATE (04/03/2025 10:25 AM EDT) DHEA-SULFATE 231.0 84.8 - 378.0 ug/dL TB 04/03/2025 10:2 5 AM EDT 04/03/2025 10:47 AM EDT Narrative CLINISYNC - 04/04/2025 12:10 PM EDT Carmine Nancy DO CLINISYNC Final Result Performing Organization Address City/[facility]/ZIP Co de Phone Number [facility] * (ABNORMAL) ALL CBC WITH AUTO DIFF (04/03/2025 10:25 AM EDT) TB WBC 10.0 4.0 - 11.0 10 3/uL TBH TB RBC 4.88 4.20 - 5.40 10 6/uL TBH TBH HGB 14.7 12.0 - 16.0 g/dL TB TB HCT 44.0 36.0 - 48.0 % TBH TBH MCV 90.2 81.0 - 99.0 fL TBH TBH MCH 30.1 26.7 - 34.0 pg TBH TBH MCHC 33.4 29.9 - 35.2 g/dL TBH TB RDW 12.4 11.0 - 15.0 % TBH TBH PLT 355 150 - 450 10 3/uL TBH TBH MPV 10.2 9.5 - 13.5 fL TBH NEUTROPHILS PERCENT AUTO 65.0 43.0 - 75.0 % TBH LYMPHOCYTES PERCENT AUTO 27.1 20.5 - 60.0 % TBH MONOCYTES PERCENT AUTO 6.0 1.7 - 12.0 % TBH TBH EO % 1.5 0.9 - 7.0 % TBH BASOPHILS PERCENT AUTO 0.1(L) 0.2 - 2.0 % TBH IMMATURE GRANULOCYTES PCT AUTO 0.3 0.0 - 0.5 % TBH NEUTROPHILS ABSOLUTE AUTO 6.5 1.4 - 6.5 10 3/uL TBH LYMPHOCYTES ABSOLUTE AUTO 2.7 1.2 - 3.8 10 3/uL TBH MONOCYTES ABSOLUTE AUTO 0.6 0.3 - 0.8 10 3/uL TBH TBH EO # 0.2 0.0 - 0.7 10 3/uL TBH BASOPHILS ABSOLUTE AUTO 0.0 0.0 - 0.1 10 3/uL TBH IMMATURE GRANULOCYTES ABS AUTO 0.03 0.00 - 0.03 10 3/uL TBH 04/03/2025 10:2 5 AM EDT 04/03/2025 10:47 AM EDT Narrative CLINISYNC - 04/03/2025 10:56 AM EDT Carmine Nancy DO CLINISYNC Final Result [facility] * POCT , urine manually resulted (04/02/2025 3:05 PM EDT) Preg Test, Ur Negative Negative Urine 04/02/2025 3:05 PM EDT Carmine Nancy DO POINT OF CARE TEST ENTER/EDIT OR DERABLES Final Result from Last 3 Months Insurance BS Care Teams Automotive Tire Technician Relationship Specialty Start Date End Date Mahendra Mustafa MD [address] [place] [phone] PCP - General Family Medicine 02/02/23
--- OUTSIDE RECORDS SUMMARY | 2025-04-29 08:42 | XMS_ITS | Encounter Summary ---
Author Organization [facility] Address [address] [place] [address] Care Team Providers Care Gaming Department Head Name Role Phone Mahendra Mustafa MD Primary Care Provider [phone] Encounter Details Date Type Department Care Team (Late st Contact Info) Description 04/16/2025 Telephone [facility] [address] [facility] [place] [address] Carmine Cruz DO [address] [place], [id number] Social History Tobacco Use Types Packs/Day Years [...] on file documented as of this encounter Miscellaneous Notes * Telephone Encounter - Tasneem ReneOMERO - 04/16/2025 3:40 PM EDT I had got a phone call from the [facility] saying that they needed more blood work from me, that they did not get enough for a couple of the tests. Um, I was wondering if Caitlin still needed me or wanted me to do that. Uh, you can give me a call back at [phone]. Thank you. Called and spoke with Terese at the hospital and asked her if she was needing to have these labs (DHEA Serum) redrawn. Terese states that the hospital did have enough but when went to [facility] they did not have enough and not able to use the extra they had. Terese states that patient will just come in to the lab and let them know she is in red book and they will take care of the lab draw as new orderand account was created. Patient was called and made of this and she did voice understanding in this and will have done. documented in this encounter Plan of Treatment Upcoming Encounters Date Type Department Care Team (Late st Contact Info) Description 2025 2:40 PM EDT Procedure Visit [facility] [address] [facility] [place] [phone] Carmine Cruz DO [address] [place], [place] [id number] documented as of this encounter Visit Diagnoses Not on filedocumented in this encounter Care Teams Gaming Department Head Relationship Specialty Start Date End Date Mahendra Mustafa MD [address] [facility] [place] [address] PCP - General Family Medicine 02/02/23 documented as of this encounter
--- OUTSIDE RECORDS SUMMARY | 2025-04-29 08:43 | XMS_ITS | CCD ---
Author Organization [facility] Care Team Providers Care Chief Maintenance Supervisor Name Role Phone ELLA CRUZ Admitting Unavailable ELLA CRUZ Attending Unavailable LOR ., DR JOHN Primary Care Unavailable ELLA CRUZ Consulting Unavailable LOR ., DR JOHN Admitting Unavailable LOR ., DR JOHN Attending Unavailable LOR ., DR JOHN Primary Care Unavailable LOR ., DR JOHN Consulting Unavailable [place], DR CHUCKIE Escalante Consulting Unavailable Dora Mustafa MD Primary Care Provider [phone] Dora Mustafa MD Primary Care Provider [phone] ELLA CRUZ Attending Unavailable ELLA CRUZ Referring Unavailable Medications Current Medications Medication Drug Class(es) Dates Sig (Normalized) Sig (Original) medroxyPROGESTERone acetate 10 mg oral tablet (20 sources) Progestin Start: 5 End: 6 take 1 tablet by mouth once daily medroxyPROGESTERone (Provera) 10 MG tablet Indications: Amenorrhea , Abnormal uterine bleeding (AUB) Take 1 tablet (10 mg) by mouth Daily Take 1 tablet by mouth daily for 7 days beginning on day 16 of the menstrual cycle. 10 tablet 3 04/02/2025 04/02/2026 Active Start: 06-29-2024 medroxyPROGEST ERone (Depo-Provera) 150 MG/ML suspension prefilled [...] HUMAN PAPILLOMAVIRUS] Onset: 07-21-2022 Episodic Menstrual disorders (14 sources) Excessive and frequent menstruation with irregular cycle; Translations: [Disorder of menstruation] Onset: 10-08-2022 Chronic Other endocrine disorders (2 sources) Polycystic ovary syndrome; Translations: [Polycystic ovarian syndrome] 04-02-2025 Chronic Other female genital disorders (2 sources) Abnormal uterine bleeding; Translations: [Abnormal uterine and vaginal bleeding, unspecified] 04-02-2025 Chronic Other screening for suspected conditions (not [...] Documented Date Episodic/Chronic Contraceptive and procreative management (4 sources) Contraception ; Translations: [Encounter for surveillance of injectable contraceptive] Onset: 06-29-2024 06-29-2024 Episodic Results Test Name Value Interpretation Reference Range Facility US PELVIC COMPLETE W/ TVon 0 04-18-2025 US PELVIC COMPLETE W/ TV FINDINGS: Uterus 9.7 x 4.3 x 5.8 cm Endometrium 13 mm Right ovary 3.7 x 3.6 x 3.2 cm (cyst) Left ovary Not seen The uterus is normal in size and orientation. No worrisome mass lesions are seen. Endometrium appears unremarkable. Right ovarian 2.0 x 2.7 cm benign cyst. Left ovary not seen, no left adnexal mass. No pelvic fluid IMPRESSION: 1. Right ovarian benign cyst 2. Normal uterus TRANSCRIBED BY: ELECTRONICALLY SIGNED BY: Meño Cho MD Normal Not Available Comment on above: Order Comment: US PE LVIS-TRANSVAG IF INDICATED Patient's last menstrual period was 01/12/2025 (approximate). ALL CBC WITH AUTO DIFFon BASOPHILS ABSOLUTE AUTO 0 [facility] Basophils/100 WBC (Bld) 0.1 % Low 0.2 - 2.0 % [facility] Eosinophils/100 WBC (Bld) 1.5 % 0.9 - 7.0 % [facility] Erythrocyte distribution width (RBC) [Ratio] 12.4 % 11.0 - 15.0 % [facility] Hematocrit (Bld) [Volume fraction] 44 % 36.0 - 48.0 % [facility] Hemoglobin (Bld) [Mass/Vol] 14.7 g/dL 12.0 - 16.0 g/dL [facility] IMMATURE GRANULOCYTES ABS AUTO 0.03 [facility] Immature granulocytes/100 WBC (Bld) 0.3 % 0.0 - 0.5 % [facility] Interpretation and review of laboratory results Abnormal [facility] LYMPHOCYTES ABSOLUTE AUTO 2.7 [facility] Lymphocytes/100 WBC (Bld) 27.1 % 20.5 - 60.0 % [facility] MCH (RBC) [Entitic mass] 30.1 pg 26.7 - 34.0 pg [facility] MCHC (RBC) [Mass/Vol] 33.4 g/dL 29.9 - 35.2 g/dL [facility] MCV (RBC) [Entitic vol] 90.2 fL 81.0 - 99.0 fL [facility] MONOCYTES ABSOLUTE AUTO 0.6 [facility] Monocytes/100 WBC (Bld) 6 % 1.7 - 12.0 % [facility] NEUTROPHILS ABSOLUTE AUTO 6.5 [facility] Neutrophils/100 WBC (Bld) 65 % 43.0 - 75.0 % [facility] Platelet mean volume (Bld) [Entitic vol] 10.2 fL 9.5 - 13.5 fL [facility] EO # 0.2 [facility] PLT 355 [facility] RBC 4.88 [facility] WBC 10 [facility] HCG ( test) Ql (U)o n 04-02-2025 Interpretation and review of laboratory results Normal [facility] Preg Test, Ur Negative Negative [facility] IGP,APTIMA HPV,AGE GDLNon AGE GDLN ACOG TESTING Note . [facility] Comment on above: TESTS RESULT FLAG UN [facility] REF RANGE LAB Clinician Provided Cytology Information Source.............Cervix;Endocervix No. of containers..01 ThinPrep Vial Age Algo ACOG Shayy... FLAG LEGEND: L-Low Normal,H-High Normal,LL-Alert Low,HH-Alert High <-Panic Low,>-Panic High,A-Abnormal,AA-Critical Abnormal Performed at: 01 =G [address] [address] Gwendolyn Puente MD, IGP, RFX APTIMA HPV ASCU Note . [facility] Comment on above: TESTS RESULT FLAG UN [facility] REF RANGE LAB DIAGNOSIS: 02 NEGATIVE FOR INTRAEPITHELIAL LESION OR MALIGNANCY. Specimen adequacy: 02 Satisfactory for evaluation. Endocervical and/or squamous metaplastic cells (endocervical component) are present. Performed by: 02 Valerie Gutierrez, Correctional Officer Sergeant (ASC) . 02 Note: Note 02 The Pap [...] <-Panic Low,>-Panic High,A-Abnormal,AA-Critical Abnormal Performed at: [address] [address] Gwendolyn Puente MD, Performed at: =G - [facility] [address] [id number] Chief Resource Officer: Gwendolyn Puente MD, Phone: [phone] Performed at: [facility] [address] [id number] Chief Resource Officer: Gwendolyn Puente MD, Phone: [phone] BRUSH-SPATULA CERVIX ENDOCERVIX [facility] US PELVIS TRANSVAGon 023 [...] authenticated by: CHUCKIE BANSAL Date: 2022-10-09 11:42 [facility] PAP ACOG PANEL 2: 22 to 29on 07-29-2022 . . [facility] Comment on above: Result Comment: Perf ormed at: WB Performed By: #### [id number] #### [facility] [address] [place] [address] Dr. Nba Baker Age Gdln ACOG Testing - [facility] Comment on above: Performed By: #### [id number] #### [facility] [address] [place] [address] Dr. Nba Baker DIAGNOSIS: Comment [facility] Comment on above: Result Comment: NEGA TIVE FOR INTRAEPITHELIAL LESION OR MALIGNANCY. THIS SPECIMEN WAS RESCREENED PART OF OUR COUNSELING DIRECTOR PROGRAM. Performed at: WB Performed By: #### [id number] #### [facility] [address] [place] [address] Dr. Nba Baker Methodology: Comment [facility] Comment on above: Result Comment: This liquid based ThinPrep(R) pap test was screened with the use of an image guided system. Performed at: WB Performed By: #### [id number] #### [facility] [address] [place] [address] Dr. Nba Baker Note: Comment [facility] Comment on above: Result Comment: The Pap smear is a screening test designed to aid in the detection of premalignant and malignant conditions of the uterine cervix. It is not a diagnostic procedure and should not be used as the sole means of detecting cervical cancer. Both false-positive and false-negative reports do occur. . Performed at: WB Performed By: #### [id number] #### [facility] [address] [place] [address] Dr. Nba Baker Performed by: Comment Normal [facility] Comment on above: Result Comment: Jean-Paul Mercado, Correctional Officer Sergeant (ASCP) Performed at: [facility] Performed By: #### 4 [id number] #### [facility] [address] [place] [address] Dr. Nba Baker QC reviewed by: Comment Normal [facility] Comment on above: Result Comment: Justin Jaeger, Correctional Officer Sergeant (ASCP) Performed at: WB Performed By: #### [id number] #### [facility] [address] [place] [address] Dr. Nba Baker Reflex Criteria: Comment Normal [facility] Comment on above: Result Comment: The HPV DNA reflex criteria were not met with this specimen result therefore, no HPV testing was performed. . Performed at: WB Performed By: #### [id number] #### [facility] [address] [place] [address] Dr. Nba Baker Specimen adequacy: Comment Normal [facility] Comment on above: Result Comment: Sati sfactory for evaluation. Endocervical and/or squamous metaplastic cells (endocervical component) are present. Performed at: WB Performed By: #### 4 [id number] #### [facility] [address] [place] [address] Dr. Nba Baker Vital Signs Date Time Vital Sign Value Performing Clinician Faci lity 04-02-2025 14:37-0400 Body height 165.1 cm [employer] Work Phone: [facility] 04-02-2025 14:37-0400 Body mass index (BMI) [Ratio] 44.6 kg/m2 [employer] Work Phone: [facility] 04-02-2025 14:37-0400 Body weight 121.56 kg [employer] Work Phone: [facility] 04-02-2025 14:37-0400 Diastolic blood pressure 82 mm[Hg] Ella Nancy DO Work Phone: [facility] 04-02-2025 14:37-0400 Systolic blood pressure 130 mm[Hg] Ella Nancy DO Work Phone: [facility] 03-27-2024 11:21-0400 Body height 165.1 cm Maxine Minaya PA Work Phone: [facility] 03-27-2024 11:21-0400 Body mass index (BMI) [Ratio] 44.43 kg/m2 Maxine Marimar PA Work Phone: [facility] 03-27-2024 11:21-0400 Body weight 121.11 kg Mxaine Cabool PA Work Phone: [facility] 03-27-2024 11:21-0400 Diastolic blood pressure 80 mm[Hg] Maxine Minaya PA Work Phone: [facility] 03-27-2024 11:21-0400 Systolic blood pressure 120 mm[Hg] Maxine Minaya PA Work Phone: [facility] Healthcare Encounters Encounter Date Encounter Type Care Provider Facility Start: 04-18-2025 End: 04-18-2025 ambulatory ELLA NANCY Not Available Start: 04-03-2025 End: 04-03-2025 [facility] Result Encounter Ella Nancy DO Work Phone: [facility] Un[facility]olic[facility] Start: 04-03-2025 End: 04-03-2025 [facility] Result Encounter Ella Nancy DO Work Phone: [facility]olic[facility] Start: 04-02-2025 End: 04-02-2025 Office outpatient visit 15 minutes Ella Nancy DO Work Phone: [facility] Comment on above: Amenorrhea; PCOS (polycystic ovarian syndrome); Abnormal uterine bleeding (AUB) Start: 04-02-2025 End: 04-02-2025 ambulatory ELLA NANCY Not Available Start: 04-02-2025 End: 04-02-2025 Bamboo flowsheet Ella Nancy DO Work Phone: [facility] Start: 04-02-2025 End: 04-02-2025 Bamboo flowsheet Ella Nancy DO Work Phone: [facility] Start: 06-29-2024 End: 06-29-2024 ambulatory ELLA NANCY Not Available Start: 03-27-2024 End: 03-27-2024 Bamboo flowsheet Maxine SULLIVAN Work Phone: [facility] Start: 03-27-2024 End: 03-30-2024 Bamboo flowsheet Maxine SULLIVAN Work Phone: [facility] Start: 03-27-2024 End: 03-30-2024 [facility] Result Encounter Maxine SULLIVAN Work Phone: [facility] Unsolicited Start: 03-27-2024 End: 03-27-2024 Patient encounter procedure Maxine SULLIVAN Work Phone: [facility] Start: 03-27-2024 End: 03-27-2024 Periodic preventive med est patient 18-39 yrs Maxine SULLIVAN Work Phone: [facility] Comment on above: Well woman exam with routine gynecological exam Start: 10-08-2022 End: 10-09-[address] DORA MUSTAFA . Facility: Start: 07-14-2022 End: 07-14-2022 ambulatory ELLA NANCY Facility:[facility] Procedures Date Procedure Procedure Detail Performing Clinician Start: 04-03-2025 ALL CBC WITH AUTO DIFF Ella Nancy DO Work Phone: Start: 04-02-2025 Urine test visual color cmprsn meths Ella Nancy DO Work Phone: Start: 03-27-2024 IGP,APTIMA HPV,AGE GDLN Maxine SULLIVAN Work Phone: Plan of Treatment Date Care Activity Detail Author Start: 2025 End: 2025 Patient encounter procedure 2025 2:40 PM EDT Procedure Visit [facility] [address] [place] [address] Ella Cruz DO [address] [place] [address] [facility] Start: 04-18-2025 End: 04-18-2025 Professional / ancillary services management 04/18/2025 8:30 AM EDT Ancillary Procedure [facility] [address] [id number] [facility] Start: 04-02-2025 End: 04-02-2026 DHEA DHEA Lab Routine Amenorrhea PCOS (polycystic ovarian syndrome) Abnormal uterine bleeding (AUB) Expected: 04/02/2025 (Approximate), Expires: 04/02/2026 [facility] Comment on above: Expected: 04/02/2025 (Approximate), Expires: 04/02/2026 Start: 04-02-2025 End: 04-02-2026 US Pelvis US Pelvis w/ TV Imaging Routine Amenorrhea PCOS (polycystic ovarian syndrome) Abnormal uterine bleeding (AUB) Expected: 04/02/2025, Expires: 04/02/2026 [facility] Comment on above: Expected: 04/02/2025 , Expires: 04/02/2026 Start: 06-29-2024 End: 06-29-2024 Clinical Support 06/29/2024 9:10 AM EST Clinical Support [facility] [address] [place] [address] [facility] Start: 03-30-2024 End: 03-30-2024 Clinical Support 03/30/2024 9:00 AM EDT Clinical Support [facility] [address] [place] [address] [facility] Start: 03-27-2024 End: 03-27-2024 Patient encounter procedure 03/27/2024 11:00 AM EDT Office Visit [facility] [address] [place] [id number] Maxine Minaya PA [address] [place] [address] Arrived [facility] Comment on above: Arrived CBC W Auto Different ial panel - Blood CBC and differential Lab Routine Amenorrhea PCOS (polycystic ovarian syndrome) Abnormal uterine bleeding (AUB) Ordered: 04/02/2025 [facility] Comment on above: Ordered: 04/02/2025 Cytology Cervical or vaginal smear or scraping study Pap Smear Pathology and Cytology Routine Well woman exam with routine gynecological exam Ordered: 03/27/2024 [facility] Work Phone: Comment on above: Ordered: 03/27/2024 DHEA-sulfate DHEA-sulfate Lab Routine Amenorrhea PCOS (polycystic ovarian syndrome) Abnormal uterine bleeding (AUB) Ordered: 04/02/2025 [facility] Comment on above: Ordered: 04/02/2025 Follicle stimulating hormone Follicle stimulating hormone Lab Routine Amenorrhea PCOS (polycystic ovarian syndrome) Abnormal uterine bleeding (AUB) Ordered: 04/02/2025 [facility] Comment on above: Ordered: 04/02/2025 hCG, quantitative, hCG, quantitative, Lab Routine Amenorrhea PCOS (polycystic ovarian syndrome) Abnormal uterine bleeding (AUB) Ordered: 04/02/2025 [facility] Work Phone: Comment on above: Ordered: 04/02/2025 Hemoglobin A1c/Hemoglobin.total in Blood Hemoglobin A1c Lab Routine Amenorrhea Abnormal uterine bleeding (AUB) Ordered: 04/02/2025 [facility] Comment on above: Ordered: 04/02/2025 Luteinizing hormone Luteinizing hormone Lab Routine Amenorrhea PCOS (polycystic ovarian syndrome) Abnormal uterine bleeding (AUB) Ordered: 04/02/2025 [facility] Comment on above: Ordered: 04/02/2025 Prolactin Prolactin Lab Ro utine Amenorrhea Abnormal uterine bleeding (AUB) Ordered: 04/02/2025 [facility] Comment on above: Ordered: 04/02/2025 Thyrotropin [Units/volume] in Serum or Plasma TSH Lab Routine Amenorrhea PCOS (polycystic ovarian syndrome) Abnormal uterine bleeding (AUB) Ordered: 04/02/2025 [facility] Comment on above: Ordered: 04/02/2025 Thyroxine (T4) free [Mass/volume] in Serum or Plasma T4, free Lab Routine Amenorrhea PCOS (polycystic ovarian syndrome) Abnormal uterine bleeding (AUB) Ordered: 04/02/2025 [facility] Comment on above: Ordered: 04/02/2025 Payers Date Payer Category Payer [facility] BCBS [id number] 2022 Unknown BCBS BCBS xxxxxx [id number] 2022-Present [phone] [address] [place] [address] [id number] 1996 Unknown [id number] 1996 Unknown [id number] 1996 Unknown [id number] 1996 Unknown [id number] 1996 Unknown [id number] 1959 Unknown [id number] 1959 Unknown [id number] Social History Date Type Detail Facility Start: 03-27-2024 Tobacco smoking stat [facility] Ex-smoker [facility] History of tobacco use Current smoker [facility] History of tobacco use Cigarette Smoker [facility] Start: 03-27-2024 End: 04-02-2025 Alcoholic beverage intake Lifetime non-drinker (finding) [facility] Start: 03-27-2024 End: 04-02-2025 History of Social function [facility] Start: 03-27-2024 End: 04-02-2025 Tobacco use panel [facility] Start: 12-29-2022 Alcohol Comment caffeine intak e: 1-2 cups per day; soda [facility] Start: 1995 Sex assigned at Not on file [facility] Start: 12-29-2022 Tobacco smoking stat [facility] Smokes tobacco daily [facility] History of Present illness Narrative 04-02-2025 Lorene Kilgore LPN - 04/02/2025 2:20 PM EDT Note Date & Type Note Facility 04-02-2025 History of Presen t illness Narrative Reason for Appointment: Patient ID: Lillian Zapata is a 29 y.o. female who presents for Amenorrhea (Pt present today to discuss missed menses w/negative tests.) Patient presents today for Acute Visit. MEDICATIONS Current Outpatient Medications Medication Instructions medroxyPROGESTERone (Depo-Provera) 150 MG/ML suspension prefilled syringe injection syringe INJECT 1 ML (150 MG) INTO THE SHOULDER, THIGH, OR BUTTOCKS EVERY 3 MONTHS medroxyPROGESTERone (DEPO-PROVERA) 150 mg, Intramuscular, Once medroxyPROGESTERone (PROVERA) 10 mg, Oral, Daily, Take 1 tablet by mouth daily for 7 days beginning on day 16 of the menstrual cycle. ALLERGIES No Known Allergies PROBLEMS Active Ambulatory Problems Diagnosis Date Noted Menstrual disorder 02/01/2023 Encounter for surveillance of injectable contraceptive 06/29/2024 Resolved Ambulatory Problems Diagnosis Date Noted No [...] OTHER SURGICAL HISTORY R shoulder scope DAP NM LAP,APPENDECTOMY 2016 REVIEW OF SYSTEMS Review of Systems: Review of Systems Constitutional: Negative. HENT: Negative. Eyes: Negative. Respiratory: Negative. Cardiovascular: Negative. Gastrointestinal: Negative. Genitourinary: Negative. Musculoskeletal: Negative. Skin: Negative. Neurological: Negative. All other systems reviewed and are negative. Hematological: Negative. Endocrine: Negative. Allergic/Immunologic: Negative. OBJECTIVE Objective: Physical Exam Constitutional: Appearance: Normal appearance. She is well-developed. Cardiovascular: Rate and Rhythm: Normal rate and regular rhythm. Pulmonary: Effort: Pulmonary effort is normal. Breath sounds: Normal breath sounds. Abdominal: General: Bowel sounds are normal. There is no distension. Palpations: Abdomen is soft. Tenderness: There is no abdominal tenderness. There is no guarding or rebound. Musculoskeletal: General: No swelling. Normal range of motion. Right lower leg: No edema. Left lower leg: No edema. Neurological: Mental Status: She is alert and oriented to person, place, and time. Skin: General: Skin is warm and dry. Psychiatric: Mood and Affect: Mood normal. Behavior: Behavior normal. Vitals and nursing note reviewed. Exam conducted with a brake tester present. Vitals: Estimated body mass index is 44.6 kg/m as calculated from the following: Height as of this encounter: 5' 5 . Weight as of this encounter: 268 lb. BP: 130/82 Patient's last menstrual period was 01/12/2025 (approximate). ASSESSMENT & PLAN ICD-10-CM 1. Amenorrhea N91.2 POCT , urine manually resulted medroxyPROGESTERone (Provera) 10 MG tablet hCG, quantitative, TSH T4, free CBC and differential Follicle stimulating hormone Luteinizing hormone Hemoglobin A1c DHEA-sulfate DHEA US Pelvis w/ TV Prolactin DHEA 2. PCOS (polycystic ovarian syndrome) E28.2 hCG, quantitative, TSH T4, free CBC and differential Follicle stimulating hormone Luteinizing hormone DHEA-sulfate DHEA US Pelvis w/ TV DHEA 3. Abnormal uterine bleeding (AUB) N93.9 medroxyPROGESTERone (Provera) 10 MG tablet hCG, quantitative, TSH T4, free CBC and differential Follicle stimulating hormone Luteinizing hormone Hemoglobin A1c DHEA-sulfate DHEA US Pelvis w/ TV Prolactin DHEA Pt presents with missed menses since January with negative preg test. Pt given labs and ultrasound. Discussed IUD. rx for provera faxed to pharmacy. Pt to return in 4-6 weeks for annual exam. Documented by Lorene Kilgore LPN on behalf of: Ella Cruz DO documented in this encounter [facility] History of Present illness Narrative 03-27-2024 NATE [...] OTHER SURGICAL HISTORY R shoulder scope DAP NM LAP,APPENDECTOMY 2016 REVIEW OF SYSTEMS Review of [...] nursing note reviewed. Exam conducted with a brake tester present. Vitals: Estimated body mass index is [...] examination documented in this encounter [facility] Evaluation note Note Date & Type Note Facility Evaluation note Diagnosis Amenorrhea Absence of menstruation PCOS (polycystic ovarian syndrome) Polycystic ovaries Abnormal uterine bleeding (AUB) documented in this encounter [facility] Summary Purpose Family History No Family History Records FoundNo Family History Records Found Advance Directives No Advanced Directives Records FoundNo Advanced Directives Records Found Additional Source Comments INFORMATION SOURCE (unrecogn ized section and content) DATE CREATED AUTHOR 10/17/2022 [facility] DATE CREATED AUTHOR AUTHOR'S ORGANIZ ATION 04/19/2025 [facility] EPIC Reason for Visit (unrecogniz ed section and content) Reason Comments Well Women Visit Reason Comments Amenorrhea Pt present today to discuss missed menses w/negative tests. Care Teams (unrecognized sec tion and content) Chief Maintenance Supervisor Relationship Specialty Start Date End Date Dora Mustafa MD [address] [place] [address] PCP - General Family Medicine 02/02/23 Chief Maintenance Supervisor Relationship Specialty Start Date End Date Dora Mustafa MD [address] [place] [address] PCP - General Family Medicine 02/02/23 Chief Maintenance Supervisor Relationship Specialty Start Date End Date Dora Mustafa MD [address] [place] [address] PCP - General Family Medicine 02/02/23 Chief Maintenance Supervisor Relationship Specialty Start Date End Date Dora Mustafa MD [address] [place] [address] PCP - General Family Medicine 02/02/23 Chief Maintenance Supervisor Relationship Specialty Start Date End Date Dora Mustafa MD [address] [place] [address] PCP - General Family Medicine 02/02/23 FOR [...] BE BASED ON THE PRIMARY CLINICAL RECORDS. [facility] [employer] [facility]. provides no warranty or guarantee of the accuracy or completeness of information in this document.
[2025-05-04 16:08] LABS: DHEA, Serum 303 ng/dL (31-701)
== END 2025-04-29 08:41 | disposition home or self-care (01) ==
LOC: LAB 08:40
PROVIDERS: PCP Family Medicine; Visit Provider Obstetrics & Gynecology
DX: E28.2 Polycystic ovarian syndrome (principal); N93.9 Abnormal uterine and vaginal bleeding, unspecified
CPT/HCPCS: 36415; 82626; 82627

== ENCOUNTER 2025-05-07 19:15 | Outpatient (REF) | payer BC, SELFPAY ==
--- OUTSIDE RECORDS SUMMARY | 2025-05-07 14:40 | XMS_ITS | Encounter Summary ---
Author Organization [facility] Address [address] [place] [address] Care Team Providers Care Quality Auditor Name Role Phone Mahendra Mustafa MD Primary Care Provider [phone] Reason for Visit * Reason Comments Gynecologic Exam Encounter Details Date Type Department Care Team (Latest Contact Info) Description 2025 2:40 PM EDT Procedure Visit [facility] [address] [place] [address] Carmine Cruz DO [address] [place] [address] Well woman exam with routine gynecological exam; Encounter to discuss test results; Amenorrhea Social History Tobacco Use Types Packs/Day Years [...] Sign Reading Time Taken Comments Blood Pressure 128/72 2025 3:00 PM EDT Pulse - - Temperature - - Respiratory Rate - - Oxygen Saturation - - Inhaled Oxygen Concentration - - Weight 122 kg (269 lb) 2025 3:00 PM EDT Height 165.1 cm (5' 5 ) 2025 3:00 PM EDT Body Mass Index 44.76 2025 3:00 PM EDT documented in this encounter Plan of Treatment Scheduled Orders Name Type Priority Associated Diagnoses Orde r Schedule Pap Smear Pathology and Cytology Routine Well woman exam with routine gynecological exam Ordered: 2025 documented as of this encounter Visit Diagnoses Diagnosis Well woman exam with routine gynecological exam Routine gynecological examination Encounter to discuss test results Other specified counseling Amenorrhea Absence of menstruation documented in this encounter Care Teams Quality Auditor Relationship Specialty Start Date End Date Mahendra Mustafa MD [address] [place] [address] PCP - General Family Medicine 02/02/23 documented as of this encounter
--- OUTSIDE RECORDS SUMMARY | 2025-05-07 19:18 | XMS_ITS | Encounter Summary ---
Author Organization [facility] Address [address] [place] [address] Care Team Providers Care Painting Department Supervisor Name Role Phone Mahendra Mustafa MD Primary Care Provider [phone] Encounter Details Date Type Department Care Team (Late st Contact Info) Description 04/29/2025 Clinisync Result Encounter [facility] External Department Unsolicited Carmine Cruz, DO [address] [facility] [address] [place] [id number] Social History Tobacco Use Types Packs/Day Years [...] as of this encounter Plan of Treatment Not on file documented as of this encounter Procedures Procedure Name Priority Date/Time Associated Diagnosis Comments ALL DEHYDROEPIANDROSTERONE Routine 04/29 8:53 AM EDT documented in this encounter Results * ALL DEHYDROEPIANDROSTERONE (04/29/2025 8:53 AM EDT) DHEA, SERUM 303 31 - 701 ng/dL [facility] Comment: This test was developed and its performance characteristics determined by [facility]. It has not been cleared or approved by the Food and Drug Administration. Performed at: [address] [id number] Finisher Cold Rolling: Aaron Cantu MD, Phone: [phone] 04/29/2025 8:53 AM EDT 04/29/2025 9:16 AM EDT Narrative [facility] - 05/04/2025 4:08 PM EDT us Carmine Nancy DO [facility] Final Result Performing Organization Address City/State/[facility] Co de Phone Number [facility] documented in this encounter Visit Diagnoses Not on filedocumented in this encounter Care Teams Painting Department Supervisor Relationship Specialty Start Date End Date Mahendra Mustafa MD [address] [place] [address] PCP - General Family Medicine 02/02/23 documented as of this encounter
--- OUTSIDE RECORDS SUMMARY | 2025-05-07 19:18 | XMS_ITS | CCD ---
Author Organization [facility] Care Team Providers Care Dry Chain Operator Name Role Phone ELLA CRUZ Admitting Unavailable ELLA CRUZ Attending Unavailable LOR ., DR JOHN Primary Care Unavailable ELLA CRUZ Consulting Unavailable LOR ., DR JOHN Admitting Unavailable LOR ., DR JOHN Attending Unavailable LOR ., DR JOHN Primary Care Unavailable LOR ., DR JOHN Consulting Unavailable [place], DR CHUCKIE Escalante Consulting Unavailable Dora Mustafa MD Primary Care Provider [phone] Dora Mustafa MD Primary Care Provider [phone] ELLA CRUZ Attending Unavailable ELLA CRUZ Referring Unavailable Dora Mustafa MD Primary Care Provider Medications Current Medications Medication Drug Class(es) Dates [...] HUMAN PAPILLOMAVIRUS] Onset: 07-21-2022 Episodic Menstrual disorders (15 sources) Excessive and frequent menstruation with irregular [...] Documented Date Episodic/Chronic Contraceptive and procreative management (5 sources) Contraception ; Translations: [Encounter for surveillance of injectable contraceptive] Onset: 06-29-2024 06-29-2024 Episodic Results Test Name Value Interpretation Reference Range Facility ALL DEHYDROEPIANDROSTERONEon 05-04-2025 DHEA, SERUM 303 ng/dL 31 - 701 ng/dL [facility] Comment on above: This test was devansleyo ped and its performance characteristics determined by [facility]. It has not been cleared or approved by the Food and Drug Administration. Performed at: [address] [id number] Vice President Business & Corporate Development: Aaron Cantu MD, Phone: [phone] [facility] US PELVIC COMPLETE W/ TVon 0 04-18-2025 [...] WITH AUTO DIFFon BASOPHILS ABSOLUTE AUTO [facility] Basophils/100 WBC (Bld) 0.1 % Low 0.2 - 2.0 % [facility] Eosinophils/100 WBC (Bld) 1.5 % 0.9 - 7.0 % [facility] Erythrocyte distribution width (RBC) [Ratio] 12.4 % 11.0 - 15.0 % [facility] Hematocrit (Bld) [Volume fraction] 44 % 36.0 - 48.0 % [facility] Hemoglobin (Bld) [Mass/Vol] 14.7 g/dL 12.0 - 16.0 g/dL [facility] IMMATURE GRANULOCYTES ABS AUTO 0.03 [facility] Immature granulocytes/100 WBC (Bld) 0.3 % 0.0 - 0.5 % [facility] Interpretation and review of laboratory results Abnormal [facility] LYMPHOCYTES ABSOLUTE AUTO 2.7 [facility] Lymphocytes/100 WBC (Bld) 27.1 % 20 .5 - 60.0 % [facility] MCH (RBC) [Entitic mass] 30.1 pg 26. 7 - 34.0 pg [facility] MCHC (RBC) [Mass/Vol] 33.4 g/dL 29.9 - 35.2 g/dL [facility] MCV (RBC) [Entitic vol] 90.2 fL 81.0 - 99.0 fL [facility] MONOCYTES ABSOLUTE AUTO 0.6 [facility] Monocytes/100 WBC (Bld) 6 % 1.7 - 12.0 % [facility] NEUTROPHILS ABSOLUTE AUTO 6.5 [facility] Neutrophils/100 WBC (Bld) 65 % 43 .0 - 75.0 % [facility] Platelet mean volume (Bld) [Entitic vol] 10.2 fL 9.5 - 13.5 fL [facility] TB EO # 0.2 [facility] PLT 355 [facility] RBC 4.88 [facility] WBC 10 [facility] HCG ( test) Ql (U)o n 04-02-2025 Interpretation and review of laboratory results Normal [facility] Preg Test, Ur Negative Negative [facility] IGP,APTIMA HPV,AGE GDLNon AGE GDLN ACOG TESTING Note . [facility] Comment on above: TESTS RESULT FLAG UN ITS REF RANGE LAB -- Clinician Provided Cytology Information Source.............Cervix;Endocervix No. of containers..01 ThinPrep Vial Age Algo ACOG Shayy... - 01 -- FLAG LEGEND: L-Low Normal,H-High Normal,LL-Alert Low,HH-Alert High <-Panic Low,>-Panic High,A-Abnormal,AA-Critical Abnormal -- Performed at: 01 =G [address] [address] Gwendolyn Puente MD, IGP, RFX APTIMA HPV ASCU Note . [facility] Comment on above: TESTS RESULT FLAG UN ITS REF RANGE LAB -- DIAGNOSIS: 02 NEGATIVE FOR INTRAEPITHELIAL LESION OR MALIGNANCY. Specimen adequacy: 02 Satisfactory for evaluation. Endocervical and/or squamous metaplastic cells (endocervical component) are present. Performed by: Lisette Gutierrez, Business Supervisor ([facility]) . 02 Note: Note 02 [...] result therefore, no HPV testing was performed. -- FLAG LEGEND: L-Low Normal,H-High Normal,LL-Alert Low,HH-Alert High <-Panic Low,>-Panic High,A-Abnormal,AA-Critical Abnormal -- Performed at: [address] [place] [address] Gwendolyn Puente MD, Performed at: =G - [facility] [address], [place] [id number] Vice President Business & Corporate Development: Gwendolyn Puente MD, Phone: [phone] Performed at: [facility] [address], [place] [id number] Vice President Business & Corporate Development: Gwendolyn Puente MD, Phone: [phone] BRUSH-SPATULA CERVIX ENDOCERVIX [facility] US PELVIS TRANSVAGon 023 US PELVIS TRANSVAG [...] by: CHUCKIE BANSAL Date: 2022-10-09 11:42 Normal [facility] PAP ACOG PANEL 2: 21 to 29on 07-29-2022 . . Normal [facility] Comment on above: Result Comment: Perf ormed at: WB Performed By: #### [id number] #### [facility] [address] [place] [address] Dr. Nba Baker Age Gdln ACOG Testing 21-29 Normal [facility] Comment on above: Performed By: #### [id number] #### [facility] [address] [place] [address] Dr. Nba Baker DIAGNOSIS: Comment Normal [facility] Comment on above: Result Comment: NEGA TIVE FOR INTRAEPITHELIAL LESION OR MALIGNANCY. THIS SPECIMEN WAS RESCREENED PART OF OUR MILL TENDER WASHING PROGRAM. Performed at: WB Performed By: #### [id number] #### [facility] [address] [place] [address] Dr. Nba Baker Methodology: Comment Normal [facility] Comment on above: Result Comment: This liquid based ThinPrep(R) pap test was screened with the use of an image guided system. Performed at: WB Performed By: #### [id number] #### [facility] [address] [place] [address] Dr. Nba Baker Note: Comment [facility] Comment on above: Result Comment: The Pap smear is a screening test designed to aid in the detection of premalignant and malignant conditions of the uterine cervix. It is not a diagnostic procedure and should not be used as the sole means of detecting cervical cancer. Both false-positive and false-negative reports do occur. . Performed at: WB Performed By: #### 4 [id number] #### [facility] [address] [place] [address] Dr. Nba Baker Performed by: Comment Normal [facility] Comment on above: Result Comment: Jean-Paul Mercado, Business Supervisor (ASCP) Performed at: [facility] Performed By: #### [id number] #### [facility] [address] [place] [address] Dr. Nba Baker QC reviewed by: Comment Normal [facility] Comment on above: Result Comment: Justin Jaeger Business Supervisor (ASCP) Performed at: WB Performed By: #### 4 [id number] #### [facility] [address] [place] [address] Dr. Nba Baker Reflex Criteria: Comment [facility] Comment on above: Result Comment: The HPV DNA reflex criteria were not met with this specimen result therefore, no HPV testing was performed. . Performed at: WB Performed By: #### 4 [id number] #### [facility] [address] [place] [address] Dr. Nba Baker Specimen adequacy: Comment Normal [facility] Comment on above: Result Comment: Sati sfactory for evaluation. Endocervical and/or squamous metaplastic cells (endocervical component) are present. Performed at: WB Performed By: #### 4 [id number] #### [facility] [address] [place] [address] Dr. Nba Baker Vital Signs Date Time Vital Sign Value Performing Clinician Faci lity 04-02-2025 14:37-0400 Body height 165.1 cm Ella Nancy DO Work Phone: [facility] 04-02-2025 14:37-0400 Body mass index (BMI) [Ratio] 44.6 kg/m2 Ella Nancy DO Work Phone: [facility] 04-02-2025 14:37-0400 Body weight 121.56 kg Ella Nancy DO Work Phone: [facility] 04-02-2025 14:37-0400 Diastolic blood pressure 82 mm[Hg] Ella Nancy DO Work Phone: [facility] 04-02-2025 14:37-0400 Systolic blood pressure 130 mm[Hg] Ella Nancy DO Work Phone: [facility] 03-27-2024 11:21-0400 Body height 165.1 cm Maxine Minaya PA Work Phone: [facility] 03-27-2024 11:21-0400 Body mass index (BMI) [Ratio] 44.43 kg/m2 Maxine Marimar PA Work Phone: [facility] 03-27-2024 11:21-0400 Body weight 121.11 kg Maxine Marimar PA Work Phone: [facility] 03-27-2024 11:21-0400 Diastolic blood pressure 80 mm[Hg] Maxine Marimar PA Work Phone: [facility] 03-27-2024 11:21-0400 Systolic blood pressure 120 mm[Hg] Maxine [place] PA Work Phone: [facility] Healthcare Encounters Encounter Date Encounter Type Care Provider Facility Start: 04-29-2025 End: 05-04-2025 Clinisync Result Encounter Ella Nancy DO Work Phone: [facility] External Department Unsolicited Start: 04-29-2025 End: 05-04-2025 Clinisync Result Encounter Ella Nancy DO Work Phone: [facility] External Department Unsolicited Start: 04-18-2025 End: 04-18-2025 ambulatory ELLA NANCY Not Available Start: 04-03-2025 End: 04-03-2025 Clinisync Result Encounter Ella Nancy DO Work Phone: [facility] Unsolicited Start: 04-03-2025 End: 04-03-2025 Clinisync Result Encounter Ella Nancy DO Work Phone: [facility] Unsolicited Start: 04-02-2025 End: 04-02-2025 Office outpatient visit 15 minutes Ella Nancy DO Work Phone: [facility] Comment on above: Amenorrhea; PCOS (polycystic ovarian [...] . Facility: Start: 07-14-2022 End: 07-14-2022 ambulatory ELLAWade CRUZ Facility:H1 Procedures Date Procedure Procedure Detail Performing Clinician Start: 04-29-2025 ALL DEHYDROEPIANDROSTERONE Ellawade Phano D O Work Phone: Start: 04-03-2025 ALL CBC WITH AUTO DIFF Ella Nancy DO Work Phone: Start: 04-02-2025 Urine test visual color cmprsn meths Ella Nancy DO Work Phone: Start: 03-27-2024 IGP,APTIMA HPV,AGE GDLN Maxine Minaya PA Work Phone: Plan of Treatment Date Care Activity Detail Author Start: 2025 End: 2025 Patient encounter procedure 2025 2:40 PM EDT Procedure Visit [facility] [address] [facility] [place] [id number] Ella Cruz, DO [address] [place] [address] [facility] Start: 04-18-2025 End: 04-18-2025 Professional / ancillary services management 04/18/2025 8:30 AM EDT Ancillary Procedure [facility] [address] [place] [id number] [facility] Start: 04-02-2025 End: 04-02-2026 DHEA DHEA Lab Routine Amenorrhea PCOS (polycystic ovarian syndrome) Abnormal uterine bleeding (AUB) Expected: 04/02/2025 (Approximate), Expires: 04/02/2026 [facility] Comment on above: Expected: 04/02/2025 (Approximate), Expires: 04/02/2026 Start: 04-02-2025 End: 04-02-2026 US Pelvis US Pelvis w/ TV Imaging Routine Amenorrhea PCOS (polycystic ovarian syndrome) Abnormal uterine bleeding (AUB) Expected: 04/02/2025, Expires: 04/02/2026 [facility] Comment on above: Expected: 04/02/2025 , Expires: 04/02/2026 Start: 06-29-2024 End: 06-29-2024 Clinical Support 06/29/2024 9:10 AM EST Clinical Support [facility] [address] [place] [address] [facility] Start: 03-30-2024 End: 03-30-2024 Clinical Support 03/30/2024 9:00 AM EDT Clinical Support [facility] OB [address] [place] [address] [facility] Start: 03-27-2024 End: 03-27-2024 Patient encounter procedure 03/27/2024 11:00 AM EDT Office Visit [facility] [address] [place] [address] Maxine Minaya PA [address] [place], [place] [id number] Arrived [facility] Comment on above: Arrived CBC W Auto Different ial panel - Blood CBC and differential Lab Routine Amenorrhea PCOS (polycystic ovarian syndrome) Abnormal uterine bleeding (AUB) Ordered: 04/02/2025 [facility] Comment on above: Ordered: 04/02/2025 Cytology Cervical or vaginal smear or scraping study Pap Smear Pathology and Cytology Routine Well woman exam with routine gynecological exam Ordered: 03/27/2024 [facility] Work Phone: Comment on above: Ordered: 03/27/2024 DHEA-sulfate DHEA-sulfate Lab Routine Amenorrhea PCOS (polycystic ovarian syndrome) Abnormal uterine bleeding (AUB) Ordered: 04/02/2025 [facility] Comment on above: Ordered: 04/02/2025 Follicle stimulating hormone Follicle stimulating hormone Lab Routine Amenorrhea PCOS (polycystic ovarian syndrome) Abnormal uterine bleeding (AUB) Ordered: 04/02/2025 [facility] Comment on above: Ordered: 04/02/2025 hCG, quantitative, hCG, quantitative, Lab Routine Amenorrhea PCOS (polycystic ovarian syndrome) Abnormal uterine bleeding (AUB) Ordered: 04/02/2025 [facility] Work Phone: Comment on above: Ordered: 04/02/2025 Hemoglobin A1c/Hemoglobin.total in Blood Hemoglobin A1c Lab Routine Amenorrhea Abnormal uterine bleeding (AUB) Ordered: 04/02/2025 [facility] Comment on above: Ordered: 04/02/2025 Luteinizing hormone Luteinizing hormone Lab Routine Amenorrhea PCOS (polycystic ovarian syndrome) Abnormal uterine bleeding (AUB) Ordered: 04/02/2025 [facility] Comment on above: Ordered: 04/02/2025 Prolactin Prolactin Lab Ro utine Amenorrhea Abnormal uterine bleeding (AUB) Ordered: 04/02/2025 [facility] Comment on above: Ordered: 04/02/2025 Thyrotropin [Units/volume] in Serum or Plasma TSH Lab Routine Amenorrhea PCOS (polycystic ovarian syndrome) Abnormal uterine bleeding (AUB) Ordered: 04/02/2025 [facility] Comment on above: Ordered: 04/02/2025 Thyroxine (T4) free [Mass/volume] in Serum or Plasma T4, free Lab Routine Amenorrhea PCOS (polycystic ovarian syndrome) Abnormal uterine bleeding (AUB) Ordered: 04/02/2025 [facility] Comment on above: Ordered: 04/02/2025 Payers Date Payer Category Payer [facility] BCBS [id number] 2022 Unknown BCBS BCBS [id number] 2022-Present [phone] [address] [place] [address] [id number] 1996 Unknown [id number] 1996 Unknown [id number] 1996 Unknown [id number] 1996 Unknown [id number] 1996 Unknown [id number] 1959 Unknown [id number] 1959 Unknown [id number] Social History Date Type Detail Facility Start: 03-27-[facility]24 [facility] History of tobacco use [...] [facility] Start: 12-29-2022 [facility] Start: 10-06-2022 Sex Female [facility] History of Present illness Narrative 04-02-2025 Lorene [...] OTHER SURGICAL HISTORY R shoulder scope DAP IL LAP,APPENDECTOMY 2016 REVIEW OF SYSTEMS Review of [...] nursing note reviewed. Exam conducted with a medical office clerk present. Vitals: Estimated body mass index is [...] Ella Cruz DO documented in this encounter [facility] History of Present illness Narrative [...] OTHER SURGICAL HISTORY R shoulder scope DAP IL LAP,APPENDECTOMY 2016 REVIEW OF SYSTEMS Review of [...] nursing note reviewed. Exam conducted with a medical office clerk present. Vitals: Estimated body mass index is [...] and content) DATE CREATED AUTHOR 10/17/2022 [facility] pitla DATE CREATED AUTHOR AUTHOR'S ORGANIZ ATION 04/19/2025 [facility] dical Specialists EPIC Reason for Visit (unrecogniz ed section and content) Reason Comments Well Women Visit Reason Comments Amenorrhea Pt present today to discuss missed menses w/negative tests. Care Teams (unrecognized sec tion and content) Dry Chain Operator Relationship Specialty Start Date End Date Dora Mustafa MD [address] [place] [address] PCP - General Family Medicine 02/02/23 Dry Chain Operator Relationship Specialty Start Date End Date Dora Mustafa MD [address] [place] [address] PCP - General Family Medicine 02/02/23 Dry Chain Operator Relationship Specialty Start Date End Date Dora Mustafa MD [address] [place] [address] PCP - General Family Medicine 02/02/23 Dry Chain Operator Relationship Specialty Start Date End Date Dora Mustafa MD [address] [place] [address] PCP - General [facility] 02/02/23 Dry Chain Operator Relationship Specialty Start Date End Date Dora Mustafa MD [address] [place] [address] PCP - [facility] 02/02/23 Dry Chain Operator Relationship Specialty Start Date End Date Dora Mustafa MD [address] [place] [address] PCP - General Family [facility] 02/02/23 FOR RECORDS PERTAINING TO PATIENTS WHO [...] BE BASED ON THE PRIMARY CLINICAL RECORDS. [facility] [employer] [facility]. provides no warranty or guarantee of the accuracy or completeness of information in this document.
--- OUTSIDE RECORDS SUMMARY | 2025-05-07 19:18 | XMS_ITS | Encounter Summary ---
Author Organization [facility] Address [address] [facility] [place] [address] Care Team Providers Care Pouncing Lathe Operator Name Role Phone Mahendra Mustafa MD Primary Care Provider [phone] Encounter Details Date Type Department Care Team (Late st Contact Info) Description 2025 Bamboo flowsheet [facility] [address] [address] Carmine Cruz DO [address] [facility] [address] [address] [place], [facility] Social History Tobacco Use Types Packs/Day [...] on file documented as of this encounter Visit Diagnoses Not on filedocumented in this encounter Care Teams Pouncing Lathe Operator Relationship Specialty Start Date End Date Mahendra Mustafa MD [address] [facility] [place] [address] PCP - General Family Medicine 02/02/23 documented as of this encounter
--- OUTSIDE RECORDS SUMMARY | 2025-05-07 19:18 | XMS_ITS | Clinical Summary ---
Author Organization [facility] Address [address] [place] [address] Care Team Providers Care Weatherization Crew Leader Name Role Phone Mahendra Mustafa MD Primary Care Provider [phone] Allergies No known active allergies Medications medroxyPROGESTER one (Provera) 10 MG tabletIndication s:Amenorrhea,Abn ormal uterine bleeding (AUB) Take 1 tablet (10 mg) by mouth Daily Take 1 tablet by mouth daily for 7 days beginning on day 16 of the menstrual cycle. 10 tablet 3 04/02/20 25 026 Active desogestrel-ethi nyl estradiol (Apri) 0.15-30 MG-MCG tabletIndication s:Amenorrhea Take 1 tablet by mouth Daily 28 tablet 12 05/07/20 25 026 Active medroxyPROGESTER one (Depo-Provera) 150 MG/ML suspension prefilled syringe injection syringeIndicatio ns: control counseling INJECT 1 ML (150 MG) INTO THE SHOULDER, THIGH, OR BUTTOCKS EVERY 3 MONTHS 1 mL 3 03/27/20 24 025 Discontinued medroxyPROGESTER one (Depo-Provera) 150 MG/ML suspension prefilled syringe injection syringeIndicatio ns:Encounter for surveillance of injectable contraceptive Inject 1 mL (150 mg) into the shoulder, thigh, or buttocks 1 (one) time for 1 dose 1 mL 06/29/20 24 025 Discontinued(T herapy completed) Hospital, Clinic, or Other Facility Administered Medication [...] Encounters Date Type Department Care Team Description 2025 2:40 PM EDT Procedure Visit [facility] [address] [place] [phone] Carmine Cruz, Well woman exam with routine gynecological exam; Encounter to discuss test results; Amenorrhea 2025 Bamboo flowsheet [facility] [address] [place] [phone] Carmine Cruz, 04/29/2025 Clinisync Result Encounter [facility] External Department Unsolicited Carmine Cruz, 04/18/2025 8:30 AM EDT Ancillary Procedure [facility] [address] [place] [address] Amenorrhea; PCOS (polycystic ovarian syndrome); Abnormal uterine bleeding (AUB) 04/16/2025 Telephone [facility] [address] [place] [phone] Carmine Cruz DO 04/09/2025 Telephone [facility] [address] [place] [address] Zuleika Ruvalcaba MA 04/03/2025 Clinisync Result Encounter [facility] External Department Unsolicited Carmine Cruz, 04/02/2025 2:20 PM EDT Office Visit [facility] [address] [place] [phone] Carmine Cruz DO Amenorrhea; PCOS (polycystic ovarian syndrome); Abnormal uterine bleeding (AUB) 04/02/2025 Bamboo flowsheet [facility] [address] [place] [address] Carmine Cruz DO from Last 3 [...] Mass Index 44.76 2025 3:00 PM EDT Plan of Treatment Not on file Procedures Procedure Name Priority Date/Time Associated Diagnosis Comments ALL DEHYDROEPIANDROSTERONE Routine 04/29 8:53 AM EDT US PELVIC COMPLETE W/ TV Routine 025 9:17 AM EDT Amenorrhea PCOS (polycystic ovarian syndrome) Abnormal uterine bleeding (AUB) [facility] PROLACTIN Routine 04/03/2025 10:25 AM EDT ALL FOLLICLE STIMULATING HORMONE Routine 04/03/2025 10:25 AM EDT ALL LUTEINIZING HORMONE Routine 04/03/20 25 10:25 AM EDT ALL DHEA SULFATE Routine 04/03/2025 10:25 AM EDT TBH PREG QUANT HCG Routine 04/03/2025 10:25 AM EDT ALL THYROID STIM HORMONE Routine 025 10:25 AM EDT ALL THYROXINE (T4) FREE Routine 04/03/20 25 10:25 AM EDT MLR HEMOGLOBIN A1C Routine 04/03/2025 10:25 AM EDT ALL CBC WITH AUTO DIFF Routine 10:25 AM EDT POCT , URINE Routine 04/02/2025 3:05 PM EDT Amenorrhea from Last 3 Months Results * ALL DEHYDROEPIANDROSTERONE (04/29/2025 8:53 AM EDT) DHEA, SERUM 303 31 - 701 ng/dL TB Comment: This test was developed and its performance characteristics determined by [facility] [place]. It has not been cleared or approved by the Food and Drug Administration. Performed at: [address] [id number] Produce Service Team Member: Aaron Cantu MD, Phone: [phone] 04/29/2025 8:53 AM EDT 04/29/2025 9:16 AM EDT Narrative [facility]AYDEN - 05/04/2025 4:08 PM EDT us Carmine Nancy DO CLINISYNC Final Result [facility] * US Pelvis w/ TV (04/18/2025 9:17 [...] SIGNED BY: Meño Cho MD us Carmine Nancy DO IMG US PROCEDURES Final Result * [facility] PROLACTIN (04/03/2025 10:25 AM EDT) Pathologist [facility] PROLACTIN 8.4 4.8 - 33.4 ng/mL TBH Comment: Performed at: [address] [id number] Produce Service Team Member: Garret Corado PhD, Phone: [phone] 04/03/2025 10:2 5 AM EDT 04/03/2025 10:47 AM EDT Narrative CLINISYNC - 04/04/2025 12:10 PM EDT us Carmine Nancy DO CLINISYNC Final Result CLINISYNC [facility] * TBH PREG QUANT HCG (04/03/2025 10:25 AM EDT) HCG QUANTITATIVE <1 mIU/mL TBH Comment: 5-50 0.2-1 WEEK 50-500 1-2 WEEKS 100-5,000 2-3 WEEKS 500-10,000 3-4 WEEKS 1,000-50,000 4-5 WEEKS 10,000-100,000 5-6 WEEKS 15,000-200,000 6-8 WEEKS 10,000-100,000 2-3 MONTHS 04/03/2025 10:2 5 AM EDT 04/03/2025 10:47 AM EDT Narrative CLINISYNC - 04/03/2025 11:30 AM EDT Carmine Nancy DO CLINISYNC Final [facility] * MLR HEMOGLOBIN A1C (04/03/2025 10:25 AM EDT) GLYCOHEMOGLOBIN A1C 5.4 4.5 - 6.2 % [facility] Comment: ADA RECOMMENDED LIMIT 4.0 - 6.0 ADA THERAPEUTIC TARGET < 7.0 ACTION SUGGESTED > 7.0 ESTIMATED AVERAGE GLUCOSE 108 mg/dL TB 04/03/2025 10:2 5 AM EDT 04/03/2025 10:47 AM EDT Narrative CLINISYNC - 04/03/2025 11:03 AM EDT Carminewade Cruz DO HAYDEN Final Result Performing Organization Address [facility] Co de Phone Number [facility] * ALL THYROXINE (T4) FREE (04/03/2025 10:25 AM EDT) FREE T4 0.95 0.76 - 1.46 ng/dL TB 04/03/2025 10:2 5 AM EDT 04/03/2025 10:47 AM EDT Narrative CLINISYNC - 04/03/2025 11:28 AM EDT Carmine Phano DO HAYDEN Final Result Performing Organization Address City/[facility] Co de Phone Number [facility] * ALL THYROID STIM HORMONE (04/03/2025 10:25 AM EDT) THYROID STIMULATING HORMONE 3.215 0.358 - 3.740 uIU/mL TB 04/03/2025 10:2 5 AM EDT 04/03/2025 10:47 AM EDT Narrative CLINISYNC - 04/03/2025 11:30 AM EDT Carmine Phano DO CLINISYNC Final Result Performing Organization Address City/[facility]/ZIP Co de Phone Number [facility] * ALL LUTEINIZING HORMONE (04/03/2025 10:25 AM EDT) LUTEINIZING HORMONE(LH) 3.7 . mIU/mL TBH Comment: Adult Female Range Follicular phase 2.4 - 12.6 Ovulation phase 14.0 - 95.6 Luteal phase 1.0 - 11.4 Postmenopausal 7.7 - 58.5 04/03/2025 10:2 5 AM EDT 04/03/2025 10:47 AM EDT Narrative CLINISYNC - 04/04/2025 12:10 PM EDT [facility] Ph[facility] DO [facility] Final Result Performing Organization Address [facility]/ZIP Co de Phone Number [facility] * ALL FOLLICLE STIMULATING HORMONE (04/03/2025 10:25 AM EDT) FSH 4.4 . mIU/mL TBH Comment: Adult Female Range Follicular phase 3.5 - 12.5 Ovulation phase 4.7 - 21.5 Luteal phase 1.7 - 7.7 Postmenopausal 25.8 - 134.8 04/03/2025 10:2 5 AM EDT 04/03/2025 10:47 AM EDT Narrative CLINISYNC - 04/04/2025 12:10 PM EDT [facility] Phano DO CLINISYNC Final Result [facility] * ALL DHEA SULFATE (04/03/2025 10:25 AM EDT) DHEA-SULFATE 231.0 84.8 - 378.0 ug/dL TBH 04/03/2025 10:2 5 AM EDT 04/03/2025 10:47 AM EDT Narrative CLINISYNC - 04/04/2025 12:10 PM EDT Carmine Cruz DO CLINISYNC Final Result CLINISYNC TB * (ABNORMAL) ALL CBC WITH AUTO DIFF (04/03/2025 10:25 AM EDT) Pathologist [facility] TB WBC 10.0 4.0 - 11.0 10 3/uL TBH TBH RBC 4.88 4.20 - 5.40 10 6/uL TBH TBH HGB 14.7 12.0 - 16.0 g/dL TBH TBH HCT 44.0 36.0 - 48.0 % TBH TBH MCV 90.2 81.0 - 99.0 fL TBH TBH MCH 30.1 26.7 - 34.0 pg TBH TBH MCHC 33.4 29.9 - 35.2 g/dL TBH TBH RDW 12.4 11.0 - 15.0 % TBH [...] Narrative CLINISYNC - 04/03/2025 10:56 AM EDT us Carmine Nancy DO CLINISYNC Final Result CLINISYNC TB * POCT , urine manually resulted (04/02/2025 3:05 PM EDT) Preg Test, Ur Negative Negative Urine 04/02/2025 3:05 PM EDT Carmine Nancy DO POINT OF CARE TEST ENTER/EDIT OR DERABLES Final Result from Last 3 Months Insurance [facility] Care Teams Weatherization Crew Leader Relationship Specialty Start Date End Date Mahendra Mustafa MD [address] [place] [address] PCP - General Family Medicine 02/02/23
--- OUTSIDE RECORDS SUMMARY | 2025-05-07 19:18 | XMS_ITS | Encounter Summary ---
Author Organization [facility] Address [address] [facility] [place] [address] Care Team Providers Care Manager Hospital Name Role Phone Mahendra Mustafa MD Primary Care Provider [phone] Encounter Details Date Type Department Care Team (Late st Contact Info) Description 03/14/2024 Orders Only [facility] [address] [place] [phone] Tasneem Rene LPN [address] [facility] [id number] Social History Tobacco Use Types Packs/Day Years [...] on filedocumented in this encounter Care Teams Manager Hospital Relationship Specialty Start Date End Date Mahendra Mustafa MD [address] [place] [phone] PCP - General Family Medicine 02/02/23 documented as of this encounter
--- OUTSIDE RECORDS SUMMARY | 2025-05-07 19:18 | XMS_ITS | Patient Health Record ---
Author Organization [facility] [place] Address [address] [place] [address] Care Team Providers Care Track Mechanic Name Role Phone José Miguel Mustafa Primary Care Provider Allergies No Known Allergies Results Component Value Reference Range Notes UA DIP NONAUTO WO MICRO (810 02) - IN OFFICE (Not yet reviewed by provider) Interpretation: Performing Lab: Notes/Report: COLOR straw CLARITY clear GLUCOSE n BILIRUBIN n KETONE n SPECIFIC GRAVITY 1.010 BLOOD ++ PH 7 PROTEIN 15 UROBILINOGEN n NITRITE n LEUKOCYTE ESTERASE ++ XR ANKLE LT 2V Reviewed date:10/23/2024 04:16:32 PM Interpretation: Performing Lab: Notes/Report: Source Facility: [place] [address] [place] [address] XRay Report Signed Patient: LETICIA ZAPATA MR#: [id number] : 1995 Acct:[id number] Age/Sex: 29 / F ADM Date: 10/23/24 Loc: RAD Attending Dr: Dora Mustafa M.D. Ordering Physician: Dora Mustafa M.D. Date of Service: 10/23/24 Procedure(s): XR ankle LT 2V Accession Number(s): [id number] cc: Dora Mustafa M.D. [place] [id number] Patient Name: LETICIA ZAPATA MRN: [id number] date: 1995 Sex: F Assigned Patient Location: [facility] Current Patient Location: RAD Accession/Order Number: [id number] Exam Date: 10/23/2024 09:38 Report Date: 10/23/2024 [...] ACUTE BONY FINDINGS. Impression dictated by: Lorene Angluo M.D.10/23/2024 9:43 AM Dictation Location: [place] [address] Electronically authenticated by: [id number] Y Date: 10/23/2024 09:43 Dictated By: Lorene Anuglo M.D. Signed By: 10/23/24 0945 DD/ TD/TT: Acid Conditioning Worker: XR FOOT LT 2V Reviewed date:10/23/2024 04:16:32 PM Interpretation: Performing Lab: Notes/Report: Source Facility: [place] [address] [place] [address] XRay Report Signed Patient: LETICIA ZAPATA MR#: [id number] : 1995 Acct:[id number] Age/Sex: 29 / F ADM Date: 10/23/24 Loc: [facility] Attending Dr: Dora Mustafa M.D. Ordering Physician: Dora Mustafa M.D. Date of Service: 10/23/24 Procedure(s): XR foot LT 2V Accession Number(s): [id number] cc: Dora Mustafa M.D. [place] [id number] Patient Name: LETICIA ZAPATA MRN: [id number] date: 1995 Sex: F Assigned Patient Location: [facility] Current Patient Location: [facility] Accession/Order Number: [id number] Exam Date: 10/23/2024 09:38 Report Date: 10/23/2024 [...] Lorene Angulo M.D.10/23/2024 9:43 AM Dictation Location: [place] [address] Electronically authenticated by: [id number] Y Date: 10/23/2024 09:43 Dictated By: Lorene Angulo M.D. Signed By: 10/23/2446 DD/ TD/TT: Acid Conditioning Worker: CBC AUTO DIFF Reviewed date:04/03/2025 12:31:21 PM Interpretation: Performing Lab: Notes/Report: [facility] , White Blood Count 10.0 4.0-11.0 10 3/uL Red Blood Count 4.88 4.20-5.40 10 6/uL Hemoglobin 14.7 12.0-16.0 g/dL Hematocrit 44.0 36.0-48.0 % Mean Corpuscular Volume 90.2 81.0-99.0 fL Mean Corpuscular Hemoglobin 30.1 26.7-34.0 pg Mean Corpuscular HGB Conc 33.4 29.9-35.2 g/dL Red Cell Distribution Width 12.4 11.0-15.0 % Platelet Count 355 150-450 10 3/uL Mean Platelet Volume 10.2 9.5-13.5 fL Neutrophils Percent Auto 65.0 43.0-75.0 % Lymphocytes Percent Auto 27.1 20.5-60.0 % Monocytes Percent Auto 6.0 1.7-12.0 % Eosinophils Percent Auto 1.5 0.9-7.0 % Basophils Percent Auto 0.1 0.2-2.0 % Immature Granulocytes Pct Auto 0.3 0.0-0.5 % Neutrophils Absolute Auto 6.5 1.4-6.5 10 3/uL Lymphocytes Absolute Auto 2.7 1.2-3.8 10 3/uL Monocytes Absolute Auto 0.6 0.3-0.8 10 3/uL Eosinophils Absolute Auto 0.2 0.0-0.7 10 3/uL Basophils Absolute Auto 0.0 0.0-0.1 10 3/uL Immature Granulocytes Abs Auto 0.03 0.00-0.03 10 3/uL Performing Lab: see note ML - [facility] FREE T4 Reviewed date:04/03/2025 12:31:21 PM Interpretation: Performing Lab: Notes/Report: [facility] , Free T4 0.95 0.76-1.46 ng/dL Performing Lab: see note [facility] GLYCOHEMOGLOBIN A1C Reviewed date:04/03/2025 12:31:21 PM Interpretation: Performing Lab: Notes/Report: [facility] , Glycohemoglobin A1C 5.4 4.5-6.2 % ADA RECOMMENDED LIMIT 4.0 - 6.0 ADA THERAPEUTIC TARGET < 7.0 ACTION SUGGESTED > 7.0 Estimated Average Glucose 108 Performing Lab: see note - [facility] LB PROLACTIN Reviewed date:04/04/2025 12:56:19 PM Interpretation: Performing Lab: Notes/Report: [facility] , Prolactin 8.4 4.8-33.4 ng/mL [facility] Counsel: Garret Corado PhD, Phone: [phone] Performed at: [address] [id number] Performing Lab: see note [facility] LB Luteinizing Hormone(LH) Reviewed date:04/04/2025 12:56:19 PM Interpretation: Performing Lab: Notes/Report: [facility] , Luteinizing Hormone(LH) 3.7 . mIU/mL Ovulation phase 14.0 - 95.6 Adult Female Range Postmenopausal 7.7 - 58.5 Follicular phase 2.4 - 12.6 Luteal phase 1.0 - 11.4 Performing Lab: see note [facility] LB FSH Reviewed date:04/04/2025 12:56:19 PM Interpretation: Performing Lab: Notes/Report: [facility] , FSH 4.4 . mIU/mL Luteal phase 1.7 - 7.7 Ovulation phase 4.7 - 21.5 Follicular phase 3.5 - 12.5 Postmenopausal 25.8 - 134.8 Adult Female Range Performing Lab: see note [facility] DHEA-Sulfate Reviewed date:04/04/2025 12:56:19 PM Interpretation: Performing Lab: Notes/Report: [facility] , DHEA-Sulfate 231.0 84.8-378.0 ug/dL Performing Lab: see note [facility] DHEA, Serum Reviewed date:05/05/2025 08:27:43 PM Interpretation: Performing Lab: Notes/Report: [facility] , DHEA, Serum 303 31-701 ng/dL [facility] [place], [place] [id number] Performed at: [facility] Counsel: Aaron Cantu MD, Phone: [phone] This test was developed and its performance characteristics approved by the Food and Drug Administration. determined by [facility]. It has not been cleared or Performing Lab: see note [facility] LB TSH Reviewed date:04/03/2025 12:31:21 PM Interpretation: Performing Lab: Notes/Report: [facility] , Thyroid Stimulating Hormone 3.215 0.358-3.740 u IU/mL Performing Lab: see note - [facility] LB PREG QUANT HCG Reviewed date:04/03/2025 12:31:21 PM Interpretation: Performing Lab: Notes/Report: [facility] , HCG Quantitative <1 500-10,000 3-4 WEEKS 5-50 0.2-1 WEEK 10,000-100,000 5-6 WEEKS 100-5,000 2-3 WEEKS 10,000-100,000 2-3 MONTHS 1,000-50,000 4-5 WEEKS 50-500 1-2 WEEKS 15,000-200,000 6-8 WEEKS Performing Lab: see note ML - [facility] Reason For Referral No Information Medications Medication SIG (Take, Route, Frequency, Duration) Notes Start Date End Date Status Provera Active Amoxicillin-Pot Clavulanate 875-125 MG 1 tablet Orally every 12 hrs; Duration: 10 days 04/11/2025 Active Pyridium 200 MG 1 tablet after meals Orally Three times a day; Duration: 2 days 04/11/2025 Active Social History Tobacco Use: Social History [...] W/U Status Risk Notes Problem Plantar fasciitis (098006514) Plantar fasciitis (M72.2) Active confirmed Problem Streptococcal sore throat (disorder) (31380066) Strep pharyngitis (J02.0) Active confirmed Problem Intermenstrual bleeding - irregular (89689065) Excessive, frequent and irregular menstruation (N92.1) Active confirmed Vital Signs Blood pressure diastolic 102 mm Hg 04/11/2025 Height 65 in 04/11/2025 Blood pressure systolic 132 mm Hg 04/11/2025 Weight 267.2 lbs 04/11/2025 BMI 44.46 kg/m2 04/11/2025 Encounters Encounter Location Date Provider Diagnosis [facility] [address] [place] [address] 10/11/2024 José Miguel Hoy Plantar fasciitis M7 2.2 [facility] [address] [place] [address] 04/11/2025 José Miguel Hoy UTI (urinary tract infection) N39.0 and Elevated blood-pressure reading, without diagnosis of hypertension R03.0 [facility] [address] [place] [address] 10/22/2024 José Miguel Hoy Plantar fasciitis M7 2.2 and Left foot pain M79.672 [facility] [address] [place] [address] 10/23/2024 José Miguel Mustafa Assessments Encounter Date Diagnosis (ICD Code) Assessment Notes Treatment Notes Treatment Clinical Notes Section Notes 10/11/2024 Plantar fasciitis (ICD-10 - M72.2) 04/11/2025 UTI (urinary tract infection) (ICD-10 - N39.0) 04/11/2025 Elevated blood-pressure reading, without diagnosis of hypertension (ICD-10 - R03.0) 10/22/2024 Plantar fasciitis (ICD-10 - M72.2) 10/22/2024 Left foot pain (ICD-10 - M79.672) Plan Of Treatment Pending Test Test Name Order Date ECG with Interpretation 09/15/2023 UA DIP NONAUTO WO MICRO (85327) - IN OFF ICE 04/11/2025 XR Ankle 2 Views Left 10/22/2024 BNP [...] ACCESS PPO PLUS LOCAL PLAN [id number] [place] [address] [phone] [id number] Ector Zapata Spouse - patient is the spouse of the insured 3 Medical (General) History Medical History History ICD Code DUB (dysfunctional uterine bleeding) N93 .8 COVID-19 U07.1 IBS (irritable bowel syndrome) K58.9 Murmur, cardiac R01.1 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
--- OUTSIDE RECORDS SUMMARY | 2025-05-07 19:18 | XMS_ITS | Encounter Summary ---
Author Organization [facility] Address [address] [facility] [place] [address] Care Team Providers Care Winch Operator Name Role Phone Mahendra Mustafa MD Primary Care Provider [phone] Encounter Details Date Type Department Care Team (Late st Contact Info) Description 12/31/2022 Abstract [facility] [address] [phone] Carmine Cruz DO [address] [place] [address] Social History Tobacco Use Types Packs/Day Years [...] on filedocumented in this encounter Care Teams Winch Operator Relationship Specialty Start Date End Date Mahendra Mustafa MD [address] [place] [address] PCP - General Family Medicine 02/02/23 documented as of this encounter
== END 2025-05-07 19:16 | disposition home or self-care (01) ==
LOC: LAB 19:15
PROVIDERS: PCP Family Medicine; Visit Provider Obstetrics & Gynecology
DX: Z01.419 Encounter for gynecological examination (general) (routine) without abnormal findings (principal)
CPT/HCPCS: 88175